=== PATIENT | female | born 1930 | race Caucasian/White ===

== ENCOUNTER → 2017-11-06 | Outpatient (CLI) | payer MEDICARE, OTHER ==
[~2017-11-06] MED LIST: ACET-2043 PO; DIPH0.5D12 IM; GABA-503 PO; HYDR-385 PO; HYDR28CR TP; LATA2.5D7 OP; LORA-629 PO; PHEN100C82 PO; PNEU0.5D3 IM; PRED20TA6 PO; RANI-375 PO; TIMO5DRO3 OP
== END ==
LOC: LAB 13:39
PROVIDERS: ATTEND Surgery
DX: C44.329 Squamous cell carcinoma of skin of other parts of face (principal)
CPT/HCPCS: 88305

== ENCOUNTER → 2017-12-18 | Outpatient (CLI) | payer MEDICARE, OTHER ==
[~2017-12-18] MED LIST changes: +LIDO15CR8 TP
== END ==
LOC: LAB 14:09
PROVIDERS: ATTEND Surgery
DX: L57.8 Other skin changes due to chronic exposure to nonionizing radiation (principal)
CPT/HCPCS: 88305

== ENCOUNTER → 2018-04-09 | Outpatient (CLI) | payer MEDICARE, OTHER | LOC: LAB 13:32 | PROVIDERS: ATTEND Surgery | DX: C44.329 Squamous cell carcinoma of skin of other parts of face (principal) | CPT/HCPCS: 88305; 88344 ==

== ENCOUNTER 2018-07-05 00:13 | Observation (INO) | payer MEDICARE, OTHER ==
[~2018-07-05] VITALS: Ht 152.4 cm; Wt 49.0 kg
[2018-07-05] VITALS (10 sets, daily range): BP systolic 126–152; BP diastolic 64–98
[2018-07-05] MEDS ORDERED: ARTIFICIAL TEARS OINT 3.5 GM ONE (07:59)
[2018-07-05] MEDS ORDERED: ceFAZolin(*) 2GM/D5W 50ML 50 ML IVPB ONE (08:00)
[2018-07-05] MEDS ORDERED: NORMOSOL R SOLN(*) 1000 ML BAG 1,000 ML IV PRN (08:00)
[2018-07-05] MEDS ORDERED: FAMOTIDINE 20 MG TAB PO ONE (08:00)
[2018-07-05] MEDS ORDERED: LIDOCAINE/SOD BICARB 8.4% SYR ID ONE (08:00)
[2018-07-05] MEDS ORDERED: MIDAZOLAM 2 MG/2 ML VIAL IVP PRN (08:00)
[2018-07-05] MEDS ORDERED: DEXAMETHASONE SOD 4 MG/ML VIAL ONE (08:02)
[2018-07-05] MEDS ORDERED: ONDANSETRON 4 MG/2 ML VIAL ONE (08:03)
[2018-07-05] MEDS ORDERED: PROPOFOL EMUL(*) 10MG/ML 20 ML 20 ML ONE (08:03)
[2018-07-05] MEDS ORDERED: LIDOCAINE MPF 1% 5 ML VIAL ONE (08:03)
[2018-07-05] MEDS ORDERED: fentaNYL CITR 100 MCG/2 ML AMP ONE (08:03)
--- NOTE | 2018-07-05 11:41 | Post Operative Progress Note ---
Post Operative Progress Note Date: Jul 05, 2018 Time: 11:34 Surgeon: Agueda Dictation number: [id number] Anesthesia: LMA by Dr. 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
--- NOTE | 2018-07-05 14:54 | OPERATIVE REPORT 1 ---
EVENT DATE: July 05, 2018 SURGEON: Adryan Romeo M.D. ANESTHESIOLOGIST: James Barksdale M.D. ANESTHESIA: LMA. 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 POSTOPERATIVE DIAGNOSIS Recurrent right cheek facial squamous cell skin cancer. PROCEDURE PERFORMED 1, Wide excision of a right face squamous cell skin cancer. 2. Full thickness skin graft from right neck to right face. COMPLICATIONS None. CONDITION Stable. ESTIMATED BLOOD LOSS Minimal. INDICATIONS This is an 87-year-old female who I removed skin cancer from several different places but including one on her right cheek and near the bridge of her nose below the medial portion of her right eye. It has recurred several times so I have recommended wider excision in the operating room with frozen sections to assess the margins. I also told her she would need a skin graft to cover the defect. She is agreeable with this plan. DESCRIPTION OF PROCEDURE The patient was brought to the operating room and placed supine on the operating table. LMA anesthesia was administered and she was placed in a reclining beach chair position. Her right face and neck were prepped and draped in a sterile fashion. A time-out was completed. I marked the skin around the obvious skin cancer and made sure that all the margins were several millimeters away from the palpable cancer. I then anesthetized the skin with 0.5% ropivacaine plain and then made an incision where I had marked the skin and dissected through the dermis and the subcutaneous tissues and then undermined the skin down into the deep subcutaneous tissues to get well around this nodular type of lesion. I then passed the specimen off the field to be sent for permanent. I then removed the superior and inferolateral margins which were closest to the palpable cancer and these were sent separately for frozen section. I made this area was hemostatic with electrocautery but did not cauterize too much so as to not compromise graft take. I then assessed her preauricular, postauricular and neck skin for skin that looked fairly similar to her face and found an area below her earlobe and then marked the skin in the shape of the excision site. I then waited for the frozen section results to come back and they came back as negative for invasive cancer at the margins. I then anesthetized the skin on her right neck with 0.5% ropivacaine plain and then made an incision in the skin where I had marked it and dissected through the dermis and undermined this full thickness graft and removed as little subcutaneous tissue with it as I could. I then flipped it over and used tenotomy scissors and removed any remaining subcutaneous fat from under the dermis and scraped off the dermis until it was all visible and then I pie-crusted the graft with a #15 blade to create little slits to allow fluid to egress. I then placed it onto the defect on her right cheek and placed several interrupted 5-0 Prolene sutures through and through the graft and to the underlying tissues to keep it packed down and then sewed the edges to the edges of the defect with running 5-0 Prolene sutures. It looked nice and fit very nice with no tension and it was adherent to the underlying substrate. I then closed the defect on the right neck with running 4-0 Prolene sutures. I then cleaned and dried her skin and placed polymyxin antibiotic ointment over the graft as well as the incision on her neck and these were covered with Xeroform and dry gauze and then I wrapped her head including her right eye and graft site and donor site with Kerlix and then placed a net tube gauze over her entire head to hold all of the dressings in place. She was then awakened and the LMA removed and she was transported to the recovery room in stable condition, having tolerated the procedure without any apparent problems. ALTHEA
[2018-07-05] MEDS ORDERED: MORPHINE 2 MG/ML SYR IVP PRN (16:00)
[2018-07-05] MEDS ORDERED: ACETAMINOPHEN 325 MG TAB PO PRN (16:00)
[2018-07-05] MEDS ORDERED: FLUSH 10 ML SYR IVP PRN (16:00)
[2018-07-05] MEDS ORDERED: ONDANSETRON 4 MG/2 ML VIAL IVP PRN (16:00)
[2018-07-05] MEDS ORDERED: NALOXONE HCL 0.4 MG/ML VIAL IVP PRN (16:00)
[2018-07-05] MEDS ORDERED: LATANOPRO 0.005% OP SOLN 2.5ML OS SCH (21:00)
[2018-07-05] MEDS ORDERED: TIMOLOL MAL OS SCH (21:00)
[2018-07-05] MEDS: PHENYTOIN ER 100 MG CAPER PO SCH (21:17)
[2018-07-05] MEDS: DOCUSATE SODIUM 100 MG CAP PO SCH (21:17)
[2018-07-05] MEDS: FAMOTIDINE 20 MG TAB PO SCH (21:17)
[2018-07-05] MEDS: GABAPENTIN 300 MG CAP PO SCH (21:18)
[2018-07-06 04:33] VITALS: BP 138/71
[2018-07-06] MEDS ORDERED: DOCU-416 PO (07:12)
--- NOTE | 2018-07-06 07:20 | Short(Outpt) Discharge Summary ---
Discharge Summary Reason for Hosp/Final Diag: (1) Squamous cell carcinoma, face Status: Chronic Hospital Course & Plan: Skin cancer excised from right face below right eye and full-thickness skin graft removed from right neck to the defect below right eye. Pt has done well overnight. D/C to home this morning. Departure Discharge to: Home, Self Care Discharge Instructions Home Meds Active Scripts Docusate Sodium (COLACE) 100 Mg Capsule, 1 CAP PO BID, #30 CAP 0 Refills TAKE WITH A FULL GLASS OF WATER Prov:UTE ALARCON MD 07/06/18 Reported Medications Phenytoin Sodium Extended (DILANTIN) 100 Mg Capsule, 100 MG PO TID, CAPSULE 06/27/18 Timolol (BETIMOL) 5 Ml Drops, 1 GTT OP QHS 04/01/15 Latanoprost (LATANOPROST) 2.5 Ml Drops, 1 GTT OP QHS 04/01/15 Gabapentin (GABAPENTIN) 600 Mg Tablet, 600 MG PO TID 04/01/15 Follow up Referrals: General Surgery - 07/11/18 @ Surgery, General with UTE ALARCON MD You have a follow up appointment scheduled with Dr. Alarcon on 07/11/18, at 4:00 pm. Diet: Regular Activity: As Tolerated Special Instructions: Please keep the dressing on your head and over your right eye and cheek until I see you back in my office. Don't get the dressing wet. I will take the whole dressing down when I see you back in my office. If the dressing accidentally comes off before I see you back, leave it off and apply antibiotic ointment to the graft below your right eye and to the incision on your right neck twice each day. You can also apply dry guaze to your right eye and graft site if it is draining but if it isn't draining then leave it open to air but cover it with the antibiotic ointment. Bacitracin or triple ointment are OK. UTE ALARCON MD Jul 06, 2018 07:20
[2018-07-06 07:33] VITALS: BP 140/88
[2018-07-06] MEDS: FAMOTIDINE 20 MG TAB PO SCH (08:47)
[2018-07-06] MEDS: PHENYTOIN ER 100 MG CAPER PO SCH (08:47)
[2018-07-06] MEDS: DOCUSATE SODIUM 100 MG CAP PO SCH (08:47)
[2018-07-06] MEDS: GABAPENTIN 300 MG CAP PO SCH (08:49)
[2018-07-06 11:21] VITALS: Ht 152.4 cm; Wt 49.0 kg
== END 2018-07-06 07:11 | disposition home or self-care (01) ==
LOC: OR 00:13 → MED 16:50 → INTOOBSV 16:50
PROVIDERS: ADMIT Surgery; ATTEND Surgery
DX: C44.92 Squamous cell carcinoma of skin, unspecified (principal)
CPT/HCPCS: 11642; 15240; 36415; 80185; 88305; A9270; G0378; J1100; J2001; J2405; J2704; J3010; 88331; J0690

== ENCOUNTER 2018-07-07 09:11 | Inpatient (IN) | payer MEDICARE, OTHER ==
[~2018-07-07] VITALS: Ht 177.8 cm; Wt 49.4 kg
--- NOTE | 2018-07-07 09:35 | ER Report ---
History and Physical Time Seen By MD: 09:15 Hx. of Stated Complaint: pt fell at home, shortening and pain in L leg/hip HPI/ROS CHIEF COMPLAINT: fall, left hip pain HISTORY OF PRESENT ILLNESS: 87-year-old female presents approximate one hour after twisting and falling in her kitchen. Patient complains of left hip pain di rectly after the fall. Family helped her to get back in bed and called EMS when patient could not ambulate. Patient's pain was improved with 50 of fentanyl and round. She denies other injuries, pain, weakness, or numbness. Patient is recently status post skin graft to right cheek for malignant melanoma. Patient denies other surgeries. Patient has a seizure history with last seizure at age 38 and is on Dilantin. REVIEW OF SYSTEMS: Constitutional: No fever, no chills. Eyes: No discharge. ENT: No sore throat. Cardiovascular: No chest pain, no palpitations. Respiratory: No cough, no shortness of breath. Gastrointestinal: No abdominal pain, no vomiting. Genitourinary: No hematuria. Musculoskeletal: No back pain. Skin: No rashes. Neurological: No headache. Remainder of the 14 system rev: Yes Allergies: Coded Allergies: No Known Drug Allergies (Unverified , 01/07/17) Home Meds Active Scripts Docusate Sodium (COLACE) 100 Mg Capsule, 1 CAP PO BID, #30 CAP 0 Refills TAKE WITH A FULL GLASS OF WATER Prov:UTE ALARCON MD 07/06/18 Reported Medications Phenytoin Sodium Extended (DILANTIN) 100 Mg Capsule, 100 MG PO TID, CAPSULE 06/27/18 Timolol (BETIMOL) 5 Ml Drops, 1 GTT OP QHS 04/01/15 Latanoprost (LATANOPROST) 2.5 Ml Drops, 1 GTT OP QHS 04/01/15 Gabapentin (GABAPENTIN) 600 Mg Tablet, 600 MG PO TID 04/01/15 Reviewed Nurses Notes: Yes Old Medical Records Reviewed: Yes Hx Smoking: No Smoking Status: Never Smoker Hx Substance Use Disorder: No Hx Alcohol Use: No Constitutional Vital Sign - Last 24 Hours 07/07/18 09:14 Temp 97.9 Pulse 70 Resp 14 B/P (MAP) 107/61 Pulse Ox 97 O2 Delivery Nasal Cannula Physical Exam General Appearance: The patient is alert, has no immediate need for airway protection and no signs of toxicity. Eyes: Pupils equal and round no pallor or injection. ENT, Mouth: Mucous membranes are moist. Pt has 2x3cm skin graft inf to r eye. Respiratory: There are no retractions, lungs are clear to auscultation. Cardiovascular: Regular rate and rhythm. Gastrointestinal: Abdomen is soft and non tender, no masses, bowel sounds normal. Neurologic: alert, oriented, nl sensation throughout Skin: Warm and dry, no rashes. Musculoskeletal: Neck is supple non tender. No c/t/l spine ttp LLE shortened, externally rotated; l hip pain with pain/ttp throughout left hip, knee, tib fib but without stepoffs. DP 1+ bilaterally. able to plantar/dorsiflex toes and ankle. DIFFERENTIAL DIAGNOSIS: After history and physical exam differential diagnosis was considered for hip fx > hip dislocation > pelvic fx Medical Decision Making Data Points Result Diagram: 07/07/1890407/07/18904 Laboratory Hematology Test 07/07/18 09:05 Red Blood Count 3.79 M/uL (4.17-5.56) Mean Corpuscular Volume 101.1 fL (80.0-96.0) Mean Corpuscular Hemoglobin 34.2 pg (26.0-33.0) Mean Corpuscular Hemoglobin Concent 33.8 g/dL (32.0-36.0) Red Cell Distribution Width 13.6 % (11.5-14.5) Mean Platelet Volume 8.7 fL (7.2-11.1) Neutrophils (%) (Auto) 83.0 % (39.4-72.5) Lymphocytes (%) (Auto) 7.5 % (17.6-49.6) Monocytes (%) (Auto) 9.0 % (4.1-12.4) Eosinophils (%) (Auto) 0.2 % (0.4-6.7) Basophils (%) (Auto) 0.3 % (0.3-1.4) Nucleated RBC Relative Count (auto) 0.0 /100WBC Neutrophils # (Auto) 9.3 K/uL (2.0-7.4) Lymphocytes # (Auto) 0.8 K/uL (1.3-3.6) Monocytes # (Auto) 1.0 K/uL (0.3-1.0) Eosinophils # (Auto) 0.0 K/uL (0.0-0.5) Basophils # (Auto) 0.0 K/uL (0.0-0.1) Nucleated RBC Absolute Count (auto) 0.00 K/uL Prothrombin Time 14.4 seconds (12.0-14.4) Prothromb Time International Ratio 1.11 Activated Partial Thromboplast Time 32 seconds (23-35) Sodium Level 130 mmol/L (137-145) Potassium Level 4.1 mmol/L (3.5-5.0) Chloride Level 92 mmol/L (98-107) Carbon Dioxide Level 31 mmol/L (22-31) Blood Urea Nitrogen 14 mg/dl (7-18) Creatinine 0.50 mg/dl (0.52-1.04) Glomerular Filtration Rate Calc > 60.0 Random Glucose 121 mg/dl (75-110) Calcium Level 8.7 mg/dl (8.4-10.2) Total Bilirubin 0.4 mg/dl (0.2-1.3) Aspartate Amino Transf (AST/SGOT) 35 U/L (0-35) Alanine Aminotransferase (ALT/SGPT) 23 U/L (0-56) Alkaline Phosphatase 69 U/L (0-126) Total Protein 6.0 g/dl (6.3-8.2) Albumin 3.6 g/dl (3.5-5.0) Phenytoin (Dilantin) Level 12.8 ug/ml Phenytoin Last Dose Date . Chemistry Test 07/07/18 09:05 White Blood Count 11.2 k/uL (4.5-11.0) Red Blood Count 3.79 M/uL (4.17-5.56) Hemoglobin 12.9 g/dL (12.0-16.0) Hematocrit 38.3 % (34.0-47.0) Mean Corpuscular Volume 101.1 fL (80.0-96.0) Mean Corpuscular Hemoglobin 34.2 pg (26.0-33.0) Mean Corpuscular Hemoglobin Concent 33.8 g/dL (32.0-36.0) Red Cell Distribution Width 13.6 % (11.5-14.5) Platelet Count 156 K/uL (150-450) Mean Platelet Volume 8.7 fL (7.2-11.1) Neutrophils (%) (Auto) 83.0 % (39.4-72.5) Lymphocytes (%) (Auto) 7.5 % (17.6-49.6) Monocytes (%) (Auto) 9.0 % (4.1-12.4) Eosinophils (%) (Auto) 0.2 % (0.4-6.7) Basophils (%) (Auto) 0.3 % (0.3-1.4) Nucleated RBC Relative Count (auto) 0.0 /100WBC Neutrophils # (Auto) 9.3 K/uL (2.0-7.4) Lymphocytes # (Auto) 0.8 K/uL (1.3-3.6) Monocytes # (Auto) 1.0 K/uL (0.3-1.0) Eosinophils # (Auto) 0.0 K/uL (0.0-0.5) Basophils # (Auto) 0.0 K/uL (0.0-0.1) Nucleated RBC Absolute Count (auto) 0.00 K/uL Prothrombin Time 14.4 seconds (12.0-14.4) Prothromb Time International Ratio 1.11 Activated Partial Thromboplast Time 32 seconds (23-35) Glomerular Filtration Rate Calc > 60.0 Calcium Level 8.7 mg/dl (8.4-10.2) Total Bilirubin 0.4 mg/dl (0.2-1.3) Aspartate Amino Transf (AST/SGOT) 35 U/L (0-35) Alanine Aminotransferase (ALT/SGPT) 23 U/L (0-56) Alkaline Phosphatase 69 U/L (0-126) Total Protein 6.0 g/dl (6.3-8.2) Albumin 3.6 g/dl (3.5-5.0) Phenytoin (Dilantin) Level 12.8 ug/ml Phenytoin Last Dose Date . Coagulation Test 07/07/18 09:05 Prothrombin Time 14.4 seconds Prothromb Time International Ratio 1.11 Activated Partial Thromboplast Time 32 seconds Toxicology Test 07/07/18 09:05 Phenytoin (Dilantin) Level 12.8 ug/ml Phenytoin Last Dose Date . EKG/Imaging EKG Interpretation 12 lead EKG: Rhythm: [normal sinus rhythm] [place]: normal QRS: normal ST segments: t wave flattening v5-6, 1; twi avL. No st depression or elevation [ ] Monitor Interpretation: Normal Sinus Rhythm ED Course/Re-evaluation ED Course Patient presents status post fall at home with left lower extremity deformity. Findings consistent with left femoral neck subtrochanteric fracture with distal displacement. Patient remains hemodynamically stable and neurovascularly intact distally. I consulted Dr. Sullivan who will evaluate upon admission and plan operative repair. I consulted Dr. Riley who will admit patient and evaluate for medical clearance. There is no evidence of other significant injury. Decision to Disposition Date: Jul 07, 2018 Decision to Disposition Time: 11:04 Depart Departure Latest Vital Signs Vital Signs Date Time Temp Pulse Resp B/P (MAP) Pulse Ox O2 Delivery O2 Flow Rate FiO2 07/07/18 09:14 97.9 70 14 107/61 97 Nasal Cannula Impression: Primary Impression: Subtrochanteric fracture of femur Condition: Improved Disposition: Admitted from ER Problem Qualifiers Primary Impression: Subtrochanteric fracture of femur Encounter type: initial encounter Fracture type: closed Fracture alignment: displaced Laterality: left Qualified Codes: S72.22XA - Displaced subtrochanteric fracture of left femur, initial encounter for closed fracture TIM YIN MD Jul 07, 2018 09:35
[2018-07-07 09:43] LABS: PLATELET COUNT, AUTOMATED 156 K/uL (150-450)
--- NOTE | 2018-07-07 09:44 | EKG ---
FACILITY: [facility] - [place] PATIENT NAME: LYNN MULLER : [id number] MR: [id number] V: [id number] EXAM DATE: ORDERING PHYSICIAN: TIM YIN TECHNOLOGIST: Test Reason : PRE-OP Blood Pressure : / mmHG Vent. Rate : 069 BPM Atrial Rate : 069 BPM P-R Int : 158 ms QRS Dur : 070 ms QT Int : 412 ms P-R-T Axes : 072 032 082 degrees QTc Int : 441 ms Normal sinus rhythm Nonspecific T wave abnormality Abnormal ECG When compared with ECG of 07-JAN-2017 12:07, premature supraventricular complexes are no longer present Vent. rate has decreased BY 44 BPM Confirmed by UTE JONES ([id number]) on 07/07/2018 2:11:18 PM Referred By: Confirmed By:UTE JONES
[2018-07-07 09:51] LABS: INR 1.11
[2018-07-07] MEDS ORDERED: DIPHTH/TETANUS/ACEL. PERTUSSIS IM ONLY ONE (10:20)
--- NOTE | 2018-07-07 10:32 | RADIOLOGY IMAGING REPORT ---
FACILITY: [facility] - [place] PATIENT NAME: Evelyne Flores : 1930 MR: [id number] V: [id number] EXAM DATE: ORDERING PHYSICIAN: TIM YIN TECHNOLOGIST: Location: [facility] - [place] Patient: Evelyne Flores : 1930 Visit/Account:[id number] Date of Sevice: 07/07/2018 FEMUR LEFT COMPARISONS: None. ADDITIONAL PERTINENT HISTORY: Fall with left hip pain. FINDINGS: Osseous structures: Intertrochanteric fracture with severe varus deformity. Medial displacement of th e distal fracture fragment in relation to the proximal fracture fragment. Joint spaces: Negative. Surrounding soft tissues: Negative. IMPRESSION: 1. Intertrochanteric fracture of the left hip with severe varus deformity and medial displacement of the distal fracture fragment. Report Dictated By: Anthony Patricia MD at 07/07/2018 10:27 AM Report E-Signed By: Anthony Patricia MD at 07/07/2018 10:28 AM WSN:[id number]
--- NOTE | 2018-07-07 10:33 | RADIOLOGY IMAGING REPORT ---
[place] [facility] [place]: Evelyne Flores : 1930 MR: [id number] V: [id number] EXAM DATE: ORDERING PHYSICIAN: TIM YIN TECHNOLOGIST: Location: [facility] Patient: Evelyne Flores : 1930 Visit/Account:[id number] Date of Sevice: 07/07/2018 KNEE 3 VIEW LEFT COMPARISONS: None. ADDITIONAL PERTINENT HISTORY: Fall with left hip pain. FINDINGS: Osseous structures: Negative. Joint spaces: Negative. Surrounding soft tissues: Negative. IMPRESSION: Normal views of the left knee. Report Dictated By: Anthony Patricia MD at 07/07/2018 10:29 AM Report E-Signed By: Anthony Patricia MD at 07/07/2018 10:29 AM WSN:[id number]
--- NOTE | 2018-07-07 10:34 | RADIOLOGY IMAGING REPORT ---
FACILITY: [facility] - [place] PATIENT NAME: Evelyne Flores : 1930 MR: [id number] V: [id number] EXAM DATE: ORDERING PHYSICIAN: TIM YIN TECHNOLOGIST: Location: [facility] Patient: Evelyne Flores : 1930 Visit/Account:[id number] Date of Sevice: 07/07/2018 TIBIA FIBULA LEFT COMPARISONS: None. ADDITIONAL PERTINENT HISTORY: Left hip pain after fall FINDINGS: Osseous structures: Negative. Joint spaces: Negative. Surrounding soft tissues: Negative. IMPRESSION: Normal views of the left tibia and fibula Report Dictated By: Anthony Patricia MD at 07/07/2018 10:29 AM Report E-Signed By: Anthony Patricia MD at 07/07/2018 10:30 AM WSN:[id number]
--- NOTE | 2018-07-07 10:40 | RADIOLOGY IMAGING REPORT ---
FACILITY: [facility] PATIENT NAME: Evelyne Flores : 1930 MR: [id number] V: [id number] EXAM DATE: ORDERING PHYSICIAN: TIM YIN TECHNOLOGIST: Location: [facility] - [place] Patient: Evelyne Flores : 1930 Visit/Account:[id number] Date of Sevice: 07/07/2018 HIP LEFT History: Left hip deformity and fracture. Comparison study: None. Findings: There is diffuse osteopenia. There is a subtrochanteric left femoral neck fracture with very significant displacement of the dista l fracture fragment. There is a resultant varus deformity. The lesser trochanter bone fragment is avu lsed. No additional fractures are seen. IMPRESSION: 1. Diffuse osteopenia. 2. Markedly angulated subtrochanteric left femoral neck fracture with comminution and avulsion of the lesser trochanter fragment. Report Dictated By: Wilson Purdy MD at 07/07/2018 10:34 AM Report E-Signed By: Wilson Purdy MD at 07/07/2018 10:35 AM WSN:[id number]
[2018-07-07] MEDS ORDERED: fentaNYL CITR 100 MCG/2 ML AMP IVP ONE (11:05)
[2018-07-07] MEDS ORDERED: PROMETHAZINE 25 MG/ML 1 ML AMP IVP PRN (12:00)
[2018-07-07] MEDS ORDERED: MORPHINE 1 MG/ML 30 ML PCA IV PRN (12:00)
[2018-07-07] MEDS ORDERED: NALOXONE HCL 0.4 MG/ML VIAL IVP PRN (12:00)
[2018-07-07 12:15] VITALS: BP 127/71
[2018-07-07] MEDS: NS(*) 0.9% 1000 ML BAG 1,000 ML IV PRN (13:47)
[2018-07-07] MEDS: GABAPENTIN 300 MG CAP PO SCH ×2 (14:10→20:53)
[2018-07-07] MEDS: PHENYTOIN ER 100 MG CAPER PO SCH ×2 (14:10→20:53)
--- NOTE | 2018-07-07 14:10 | History & Physical ---
History of Present Illness Chief Complaint Hip pain History of Present Illness This patient presented to the emergency room complaining of left hip pain. She fell earlier today and experienced the sudden onset of pain in her left hip. She was unable to stand afterward and was brought to the emergency room by EMT's. History Problems: (1) Seizure Onset Date: 04/01/2015 Status: Acute (2) Squamous cell carcinoma, face Status: Chronic Home Meds Active Scripts Docusate Sodium (COLACE) 100 Mg Capsule, 1 CAP PO BID, #30 CAP 0 Refills TAKE WITH A FULL GLASS OF WATER Prov:UTE ALARCON MD 07/06/18 Reported Medications Phenytoin Sodium Extended (DILANTIN) 100 Mg Capsule, 100 MG PO TID, CAPSULE 06/27/18 Timolol (BETIMOL) 5 Ml Drops, 1 GTT OP QHS 04/01/15 Latanoprost (LATANOPROST) 2.5 Ml Drops, 1 GTT OP QHS 04/01/15 Gabapentin (GABAPENTIN) 600 Mg Tablet, 600 MG PO TID 04/01/15 Allergies: Coded Allergies: No Known Drug Allergies (Unverified , 01/07/17) Hx Smoking: No Smoking Status: Never Smoker Caffeine Intake: Coffee Caffeine/Cups Per Day: 3 CUPS OF COFFEE "THE ONLY THING THAT KEEPS ME ALIVE" Hx Alcohol Use: No Hx Substance Use Disorder: No Social Drug Use: Never Review of Systems All Systems Reviewed/Normal: Yes, Except as Noted Musculoskeletal: Pain Exam Vital Signs Vital Signs Date Time Temp Pulse Resp B/P (MAP) Pulse Ox O2 Delivery O2 Flow Rate FiO2 07/07/18 13:48 14 95 07/07/18 12:35 ??? 07/07/18 12:30 ???/??? (1665) 07/07/18 12:15 Nasal Cannula 2.0 07/07/18 09:14 97.9 Neuro: No Gross deficits Eyes: PERRLA Cardiovascular: Regular Rate and Rhythm Respiratory: Clear to Auscultation GI: Abd Soft and Non-Tender Extremities: No Edema Integumentary: No Cyanosis; Other (Right suborbital skin graft.) Medical Decision Making Data Points Result Diagram: 07/07/1890407/07/18904 Assessment and Plan Problems: (1) Subtrochanteric fracture of femur Status: Acute Assessment & Plan: She did present with a left hip fracture. She is scheduled for operative repair with Dr. Sullivan tomorrow. She has no underlying conditions that would prevent her from having surgery. She will require postoperative anti coagulation. (2) Seizure Onset Date: 04/01/2015 Status: Acute Assessment & Plan: She is on chronic treatment with Phenytoin and gabapentin. (3) Skin lesion of face Status: Chronic Assessment & Plan: She did have a facial skin graft done on 07/[address] Alarcon. He is aware and will evaluate her on Monday. Venous Thromboembolism Antithrombotics Is Pt On Any Antithrombotics?: No Exam Sepsis Risk: No Definite Risk Problem Qualifiers (1) Subtrochanteric fracture of femur: Encounter type: initial encounter Fracture type: closed Fracture alignment: displaced Laterality: left Qualified Codes: S72.22XA - Displaced subtrochanteric fracture of left femur, initial encounter for closed fracture UTE JONES DO Jul 07, 2018 14:10
[2018-07-07 15:37] VITALS: Ht 177.8 cm; Wt 49.4 kg
[2018-07-07 15:56] VITALS: BP 107/54
--- NOTE | 2018-07-07 17:09 | RADIOLOGY IMAGING REPORT ---
FACILITY: [facility] - [place], [place] PATIENT NAME: Evelyne Flores : 1930 MR: [id number] V: [id number] EXAM DATE: ORDERING PHYSICIAN: UTE JONES TECHNOLOGIST: Location: [facility] Patient: Evelyne Flores : 1930 Visit/Account:[id number] Date of Sevice: 07/07/2018 CHEST SINGLE AP HISTORY: Hip fracture. Preoperative study. COMPARISON: Chest x-ray January 07, 2017. FINDINGS: Cardiomediastinal contours: The heart is enlarged. There is prominence of the central pulmonary vesse ls. Lungs and pleura: There is no discrete infiltrate, but there is a new small left pleural effusion. Th ere appears to be left basilar atelectasis as well. Bones/soft tissues: Diffuse osteopenia. IMPRESSION: 1. New left pleural effusion with left basilar atelectasis. 2. Diffuse osteopenia. Report Dictated By: Wilson Purdy MD at 07/07/2018 5:04 PM Report E-Signed By: Wilson Purdy MD at 07/07/2018 5:05 PM WSN:[id number]
[2018-07-07 19:48] VITALS: BP 94/46
[2018-07-07] MEDS: PATIENT'S OWN MED OS SCH (20:53)
[2018-07-07] MEDS: DOCUSATE SODIUM 100 MG CAP PO SCH (20:53)
[2018-07-07] MEDS: LATANOPRO 0.005% OP SOLN 2.5ML OU SCH (20:54)
[2018-07-08] VITALS (17 sets, daily range): BP systolic 98–137; BP diastolic 52–96
[2018-07-08 06:22] LABS: PLATELET COUNT, AUTOMATED 119 K/uL (150-450)
[2018-07-08] MEDS: NS(*) 0.9% 1000 ML BAG 1,000 ML IV PRN (06:38)
[2018-07-08] MEDS ORDERED: FAMOTIDINE 20 MG TAB PO ONE (07:00)
[2018-07-08] MEDS ORDERED: NORMOSOL R SOLN(*) 1000 ML BAG 1,000 ML IV ONE (07:00)
[2018-07-08] MEDS ORDERED: ONDANSETRON 4 MG/2 ML VIAL ONE ×2 (07:24→12:28)
[2018-07-08] MEDS ORDERED: DEXAMETHASONE SOD PHOS 10MG/ML ONE ×2 (07:24→12:28)
[2018-07-08] MEDS ORDERED: PROPOFOL EMUL(*) 10MG/ML 20 ML 0 ML ONE (07:24)
[2018-07-08] MEDS ORDERED: ROCURONIUM BROM 10 MG/ML 10 ML ONE ×2 (07:24→12:28)
[2018-07-08] MEDS ORDERED: LIDOCAINE MPF 1% 5 ML VIAL ONE ×2 (07:24→12:28)
[2018-07-08] MEDS ORDERED: PHENYLEPHRINE 10 MG/1 ML VIAL ONE (07:24)
[2018-07-08] MEDS ORDERED: KETAMINE HCL 500 MG/10 ML VIAL ONE ×2 (07:26→09:19)
[2018-07-08] MEDS ORDERED: fentaNYL CITR 100 MCG/2 ML AMP ONE ×2 (07:29→12:30)
[2018-07-08] MEDS ORDERED: MIDAZOLAM 2 MG/2 ML VIAL ONE ×2 (07:29→12:30)
[2018-07-08] MEDS ORDERED: LIDOCAINE 2% JELLY 5 ML TUBE ONE (07:31)
[2018-07-08] MEDS ORDERED: NS(*) 0.9% 100 ML BAG 0 ML ONE (07:34)
[2018-07-08] MEDS ORDERED: BUPIV/EPI 0.25% 1:200,000 50ML INFIL ONE (07:35)
[2018-07-08] MEDS ORDERED: PHENYTOIN 100 MG/2 ML IVP ONE (08:20)
--- NOTE | 2018-07-08 09:37 | Hospitalist Progress Note ---
Subjective Progress Notes Subjective The patient is resting comfortably on a CHANNELER INSOLE with morphine. Physical Exam Vital Signs Date Time Temp Pulse Resp B/P (MAP) Pulse Ox O2 Delivery O2 Flow Rate FiO2 07/08/18 07:21 98.6 72 12 110/52 (71) 98 Nasal Cannula 1.5 Intake and Output 07/08/18 07:00 Intake Total 1598 ml Output Total 675 ml Balance 923 ml Intake Oral 620 ml IV Total 978 ml Output Urine Total 675 ml General Appearance: Other (Sleeping.) Cardiovascular: Regular Rate and Rhythm Respiratory: Clear to Auscultation GI: Soft and Non-Tender Extremities: Warm, Perfused Psych: Other (Sleeping.) Result Diagram: 07/08/18 0507/08/18532 Monitor Interpretation: Normal Sinus Rhythm Assessment and Plan Problems: (1) Subtrochanteric fracture of femur Status: Acute Assessment & Plan: She did present with a left hip fracture. She is scheduled for operative repair with Dr. Sullivan later today. She has no underlying conditions that would prevent her from having surgery. She will require postoperative anticoagulation. (2) Seizure Onset Date: 04/01/2015 Status: Acute Assessment & Plan: She is on chronic treatment with Phenytoin and gabapentin. Will give her phenytoin IV this am prior to surgery and resume orals after the procedure. (3) Skin lesion of face Status: Chronic Assessment & Plan: She did have a facial skin graft done on 07/[address] Romeo. He is aware and will evaluate her on Monday. Time Spent on Plan of Care: < 30 min Exam Sepsis Risk: No Definite Risk Problem Qualifiers (1) Subtrochanteric fracture of femur: Encounter type: initial encounter Fracture type: closed Fracture alignment: displaced Laterality: left Qualified Codes: S72.22XA - Displaced subtrochanteric fracture of left femur, initial encounter for closed fracture OVIDIO TERRY MD Jul 08, 2018 09:37
[2018-07-08] MEDS: PHENYTOIN ER 100 MG CAPER PO SCH ×3 (09:38→21:05)
[2018-07-08] MEDS: DOCUSATE SODIUM 100 MG CAP PO SCH ×2 (09:38→21:05)
[2018-07-08] MEDS: GABAPENTIN 300 MG CAP PO SCH ×3 (09:38→21:05)
[2018-07-08] MEDS ORDERED: BUPIVACAIN 0.25% INJ 50ML VIAL ONE (10:20)
[2018-07-08] MEDS ORDERED: PROPOFOL EMUL(*) 10MG/ML 20 ML 20 ML ONE (12:28)
[2018-07-08] MEDS ORDERED: ceFAZolin(*) 2GM/D5W 50ML 50 ML IVPB ONE (13:00)
[2018-07-08] MEDS ORDERED: ACETAMINOPHEN(*)1000 MG/100 ML 100 ML IVPB ONE (15:39)
--- NOTE | 2018-07-08 15:56 | RADIOLOGY IMAGING REPORT ---
FACILITY: [facility] [place] PATIENT NAME: Evelyne Flores : 1930 MR: [id number] V: [id number] EXAM DATE: ORDERING PHYSICIAN: JORDAN RIOJAS TECHNOLOGIST: Location: Patient: Evelyne Flores : 1930 Visit/Account:[id number] Date of Sevice: 07/08/2018 C-ARM FLUORO 1 HR INDICATION: Internal fixation of left proximal femoral fracture. COMPARISON: X-ray done earlier in the day. FINDINGS: Fluoroscopic images show internal fixation of proximal femoral fracture previously seen. Intramedullary patricia and dynamic screw are in place and appear to be in good location. No periprostheti c abnormality. No acute fracture. No dislocation or bony lesion. No other radiopaque foreign body the distal femoral intramedullary patricia is visualized and shows no focal abnormality. Fluoroscopic images: 4. Fluoroscopic time: 223.8 seconds. The DAP: 0.72243 mGym2. IMPRESSION: Internal fixation of previous proximal left femoral fracture with good alignment. Report Dictated By: Camilo Osborn at 07/08/2018 3:49 PM Report E-Signed By: Camilo Osborn at 07/08/2018 3:52 PM WSN:[id number]
[2018-07-08 15:59] LABS: PLATELET COUNT, AUTOMATED 113 K/uL (150-450)
[2018-07-08] MEDS: LATANOPRO 0.005% OP SOLN 2.5ML OU SCH (21:06)
[2018-07-08] MEDS: PATIENT'S OWN MED OS SCH (21:06)
[2018-07-09] VITALS (11 sets, daily range): BP systolic 101–136; BP diastolic 46–84
[2018-07-09] MEDS: NS(*) 0.9% 1000 ML BAG 1,000 ML IV PRN (03:17)
[2018-07-09 05:39] LABS: PLATELET COUNT, AUTOMATED 96 K/uL (150-450)
[2018-07-09] MEDS ORDERED: NS(*) 0.9% 500 ML BAG 500 ML IV PRN ×2 (08:45→12:55)
[2018-07-09] MEDS ORDERED: BACITRACIN TP SCH (09:00)
[2018-07-09] MEDS ORDERED: POLYMYXIN B TP SCH (09:00)
--- NOTE | 2018-07-09 09:14 | General Surgery Consultation ---
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 She remained in house overnight and was discharged home the next morning after she was doing well. She went home and the next day after discharge apparently had fallen and was brought in by EMS and found to have a left femur fracture for which she underwent ORIF 2 days ago. She has no complaints with respect to her face or neck today. History Home Meds Active Scripts Docusate Sodium (COLACE) 100 Mg Capsule, 1 CAP PO BID, #30 CAP 0 Refills TAKE WITH A FULL GLASS OF WATER Prov:UTE ALARCON MD 07/06/18 Reported Medications Phenytoin Sodium Extended (DILANTIN) 100 Mg Capsule, 100 MG PO TID, CAPSULE 06/27/18 Timolol (BETIMOL) 5 Ml Drops, 1 GTT OP QHS 04/01/15 Latanoprost (LATANOPROST) 2.5 Ml Drops, 1 GTT OP QHS 04/01/15 Gabapentin (GABAPENTIN) 600 Mg Tablet, 600 MG PO TID 04/01/15 Allergies: Coded Allergies: No Known Drug Allergies (Unverified , 01/07/17) Exam Vital Signs Vital Signs Date Time Temp Pulse Resp B/P (MAP) Pulse Ox O2 Delivery O2 Flow Rate FiO2 07/09/18 07:57 20 92 07/09/18 07:57 99.2 93 113/54 (73) Nasal Cannula 1.0 General Appearance: Alert, Awake, No Acute Distress, Afebrile Integumentary: Other (the donor site on her right neck is healing well without erythema or drainage. The skin graft on the right side of the bridge of her nose and right cheek appears to be healing well. It is scabbed over but there is no erythema and it appears dry. The graft appears healthy.) Medical Decision Making Data Points Result Diagram: 07/09/1823 07/09/18522 Assessment and Plan Problems: (1) Squamous cell carcinoma, face Status: Chronic Assessment & Plan: 07/09/18: The patient appears to be starting the healing process well for her right face and neck. The graft appears to be healing well. Pathology results revealed the lateral margins are negative. The deep margin appears to be involved but I physically could not get any further deeper tissue as I was down to the facial musculature and even remove some of the musculature with the specimen. She will eventually need to see oncology to discuss further treatment of this aggressive recurring squamous cell skin cancer. We'll keep the skin graft open to air but apply antibiotic ointment twice a day. I will continue to follow along with respect to her head and neck surgical sites. (2) Subtrochanteric fracture of femur Status: Acute Assessment & Plan: Status post ORIF by orthopedic surgery. Management per orthopedic surgery and the hospitalist service. Condition Stable Time Spent: < 30 min Venous Thromboembolism Antithrombotics Is Pt On Any Antithrombotics?: No Problem Qualifiers (1) Subtrochanteric fracture of femur: Encounter type: initial encounter Fracture type: closed Fracture alignment: displaced Laterality: left Qualified Codes: S72.22XA - Displaced subtrochanteric fracture of left femur, initial encounter for closed fracture UTE ALARCON MD Jul 09, 2018 09:14
[2018-07-09] MEDS ORDERED: DIAZEPAM 5 MG TAB PO PRN (09:20)
[2018-07-09] MEDS: APAP/HYDROCODONE 325/5 TAB PO PRN ×3 (09:37→23:09)
--- NOTE | 2018-07-09 10:33 | Hospitalist Progress Note ---
Subjective Progress Notes Subjective She has no complaints this morning. She had no acute events overnight. Patient Complains of: Cardiovascular: No: Chest Pain Respiratory: No: Shortness of Breath Physical Exam Vital Signs Date Time Temp Pulse Resp B/P (MAP) Pulse Ox O2 Delivery O2 Flow Rate FiO2 07/09/18 07:57 20 92 07/09/18 07:57 99.2 93 113/54 (73) Nasal Cannula 1.0 Intake and Output 07/09/18 01:00 Intake Total 3058 ml Output Total 695 ml Balance 2363 ml Intake Oral 480 ml IV Total 2578 ml Output Urine Total 545 ml Estimated Blood Loss 150 ml General Appearance: Alert, Awake, No Acute Distress, Afebrile Neuro: No Gross deficits Cardiovascular: Regular Rate and Rhythm Respiratory: No Respiratory Distress, Clear to Auscultation Extremities: Warm, Perfused; No Edema Psych: Alert & Oriented X3, Appropriate Mood & Affect Result Diagram: 07/09/18 0523 07/09/18522 Monitor Interpretation: Normal Sinus Rhythm Assessment and Plan Problems: (1) Subtrochanteric fracture of femur Status: Acute Assessment & Plan: She did present with a left hip fracture. She had operative repair with Dr. Sullivan on 07/08. She will require postoperative anticoagulation. Her hemoglobin was 7.3 this morning. She will be transfused two units today. Recheck CBC in the morning. (2) Seizure Onset Date: 04/01/2015 Status: Acute Assessment & Plan: She is on chronic treatment with Phenytoin and gabapentin. She was given her phenytoin IV prior to surgery and she resumed orals after the procedure. (3) Skin lesion of face Status: Chronic Assessment & Plan: She did have a facial skin graft done on 07/[address] Romeo. He is aware and will evaluate her on Monday. Exam Sepsis Risk: No Definite Risk Problem Qualifiers (1) Subtrochanteric fracture of femur: Encounter type: initial encounter Fracture type: closed Fracture alignment: displaced Laterality: left Qualified Codes: S72.22XA - Displaced subtrochanteric fracture of left femur, initial encounter for closed fracture CATRACHO REDD QUAL RESEARCH MANAGER Jul 09, 2018 10:33
[2018-07-09] MEDS ORDERED: BISACODYL 10 MG SUPP PR PRN (10:50)
[2018-07-09] MEDS: PHENYTOIN ER 100 MG CAPER PO SCH ×3 (11:08→20:55)
[2018-07-09] MEDS: POLYETHYLENE GLYCOL 17 GM PKT PO SCH (11:08)
[2018-07-09] MEDS: GABAPENTIN 300 MG CAP PO SCH ×3 (11:08→20:55)
[2018-07-09] MEDS: DOCUSATE SODIUM 100 MG CAP PO SCH ×2 (11:08→20:55)
[2018-07-09] MEDS: BACITRACIN/POLYMY B OINT 15 GM TP SCH ×2 (11:20→20:56)
[2018-07-09] MEDS: MAGNESIUM HYDROXIDE* 30ML UDCP PO PRN (13:33)
[2018-07-09] MEDS: PATIENT'S OWN MED OS SCH (20:56)
[2018-07-09] MEDS: LATANOPRO 0.005% OP SOLN 2.5ML OU SCH (20:57)
[2018-07-10 04:30] VITALS: BP 125/60
[2018-07-10 05:54] LABS: PLATELET COUNT, AUTOMATED 97 K/uL (150-450)
[2018-07-10] MEDS: NS(*) 0.9% 1000 ML BAG 1,000 ML IV PRN (06:38)
[2018-07-10 07:16] VITALS: BP 131/64
--- NOTE | 2018-07-10 08:52 | Hospitalist Depart ---
Discharge Summary Reason for Hosp/Final Diag: (1) Subtrochanteric fracture of femur Status: Acute Hospital Course & Plan: She did present with a left hip fracture. She had operative repair with Dr. Sullivan on 07/08. She will be placed on Lovenox for DVT prophylaxis. Her hemoglobin dropped to 7.3 post-operatively. She was transfused two units 07/09. Her hemoglobin is stable post transfusion. She will be transferred to [facility] ECF unit for further rehab. (2) Seizure Onset Date: 04/01/2015 Status: Acute Hospital Course & Plan: She is on chronic treatment with Phenytoin and gabapentin. She was given her phenytoin IV prior to surgery and she resumed orals after the procedure. (3) Skin lesion of face Status: Chronic Hospital Course & Plan: She did have a facial skin graft done on 07/[address] Alarcon. Departure Latest Vital Signs Vital Signs 07/10/18 07:16 Temp 98.9 Pulse 91 Resp 20 B/P (MAP) 131/64 (86) Pulse Ox 94 O2 Delivery Nasal Cannula O2 Flow Rate 2.5 Weight (Pounds): 109 Result Diagram: 07/10/1852807/10/18528 Condition: Improved Discharge: [facility] ECF Discharge Instructions Home Meds Active Scripts Docusate Sodium (COLACE) 100 Mg Capsule, 1 CAP PO BID, #30 CAP 0 Refills TAKE WITH A FULL GLASS OF WATER Prov:UTE ALARCON MD 07/06/18 Reported Medications Phenytoin Sodium Extended (DILANTIN) 100 Mg Capsule, 100 MG PO TID, CAPSULE 06/27/18 Timolol (BETIMOL) 5 Ml Drops, 1 GTT OP QHS 04/01/15 Latanoprost (LATANOPROST) 2.5 Ml Drops, 1 GTT OP QHS 04/01/15 Gabapentin (GABAPENTIN) 600 Mg Tablet, 600 MG PO TID 04/01/15 Diet: Regular Activity: As Tolerated, With Walker Venous Thromboembolism Antithrombotics Is Pt On Any Antithrombotics?: No Problem Qualifiers (1) Subtrochanteric fracture of femur: Encounter type: initial encounter Fracture type: closed Fracture alignment: displaced Laterality: left Qualified Codes: S72.22XA - Displaced subt rochanteric fracture of left femur, initial encounter for closed fracture CATRACHO REDD ARMATURE BANDER Jul 10, 2018 08:52
[2018-07-10] MEDS ORDERED: ENOXAPARIN 40 MG/0.4ML SYR SC SCH (09:00)
[2018-07-10] MEDS ORDERED: INFLUENZA VIRUS VAC 0.5ML SYR IM ONLY ONE (09:00)
[2018-07-10] MEDS: GABAPENTIN 300 MG CAP PO SCH (09:11)
[2018-07-10] MEDS: PHENYTOIN ER 100 MG CAPER PO SCH (09:11)
[2018-07-10] MEDS: MAGNESIUM HYDROXIDE* 30ML UDCP PO PRN (09:11)
[2018-07-10] MEDS: DOCUSATE SODIUM 100 MG CAP PO SCH (09:11)
[2018-07-10] MEDS: POLYETHYLENE GLYCOL 17 GM PKT PO SCH (09:11)
[2018-07-10] MEDS: BACITRACIN/POLYMY B OINT 15 GM TP SCH (09:11)
[2018-07-10] MEDS: APAP/HYDROCODONE 325/5 TAB PO PRN (09:52)
--- NOTE | 2018-07-16 14:12 | OPERATIVE REPORT 1 ---
EVENT DATE: July 08, 2018 SURGEON: Migel Sullivan MD ANESTHESIOLOGIST: Shin Diaz MD ANESTHESIA: General endotracheal anesthesia. LABORER LIVESTOCK: CHIP Carter PREOPERATIVE DIAGNOSIS Left intertrochanteric hip fracture. POSTOPERATIVE DIAGNOSIS Left intertrochanteric hip fracture. PROCEDURE PERFORMED Long Gamma nailing after reduction of left intertrochanteric femur fracture. IV FLUIDS 900 cc. ESTIMATED BLOOD LOSS 150 cc. IMPLANTS Long Gamma nail from Jimmy with a sliding hip screw and two distal locking screws, all from Jimmy. SPECIMENS None. COMPLICATIONS None. DISPOSITION Post-Anesthesia Care Unit INDICATIONS FOR SURGERY Ms. Flores is an 87-year-old female who sustained a ground-level fall while at home, resulting in severe left hip pain. She was brought to the Emergency Department at [facility] [place] where she was found to have an intertrochanteric hip fracture on the left. She was worked up after admission by Internal Medicine and cleared for surgery. Her physical examination was significant for shortening and external rotation of the left lower extremity as well as pain with any motion of the left hip. Her x-rays showed a comminuted intertrochanteric fracture with both involvement of both the greater and lesser trochanter. Ms. Flores was counseled with regard to risks, benefit and alternatives to surgery and elected to undergo operative fixation of the left hip fracture. DESCRIPTION OF PROCEDURE On the day of surgery, she was met in the preoperative hold area and all questions were answered. Her operative site was identified and marked by me. She was brought in good condition to the operating room, where she was first intubated and sedated and then a fascia iliaca block was placed. A final time- out was undertaken to confirm correct patient, correct levels and correct surgery. Her operative site was prepped and draped in the standard sterile orthopedic fashion. The traction table was used to reduce the fracture and an excellent reduction was obtained. A standard lateral incision was made just lateral and superior to the greater trochanter of the left hip. A guidewire was then placed on the tip of the greater trochanter just medial and driven down into the shaft of the femur. The opening drill was then placed over the guidewire and sunk down to the appropriate level. A ball-tip guide patricia was then placed through the hole in the greater trochanter and down the shaft of the femur to just above the knee joint. Sequential reaming was then performed without difficulty. The 380 mm Gamma nail was then placed and impacted to the appropriate depth. The proximal guide was then used and a separate incision was made for placement of the screw into the femoral neck and head. The screw was then placed after appropriate drilling was performed using the triple guide and we then used the set screw to lock the cephalomedullary device in place. Fluoroscopy was then taken distally in perfect circles. Technique was used to place two distal locking screws, one in the static hole and one in the proximal aspect of the dynamic hole. AP and lateral radiographs were obtained of the hip as well as distally to ensure appropriate placement of all hardware. The wounds were then irrigated with copious sterile saline solution and closed with inverted interrupted sutures for the deep fascia and herminio for the skin. Sterile dressings were applied and the patient was taken to the recovery room in good condition. POSTOPERATIVE CARE PLAN Ms. Flores will be weightbearing as tolerated. She will likely require some time in a senior living facility and she will follow up with me two weeks postoperatively for an examination and removal of herminio. ALTHEA
== END 2018-07-10 10:05 | DRG 481 ==
LOC: ER 10:05 → MED 11:11
PROVIDERS: ADMIT Family Medicine; ATTEND Family Medicine
PROC: 0QS736Z Reposition Left Upper Femur with Intramedullary Internal Fixation Device, Percutaneous Approach (ICD-10-PCS; principal; 2018-07-07)
PROC: 30233N1 Transfusion of Nonautologous Red Blood Cells into Peripheral Vein, Percutaneous Approach (ICD-10-PCS; 2018-07-09)
DX: S72.22XA Displaced subtrochanteric fracture of left femur, initial encounter for closed fracture (principal); D62 Acute posthemorrhagic anemia; G40.909 Epilepsy, unspecified, not intractable, without status epilepticus; M81.0 Age-related osteoporosis without current pathological fracture; C44.92 Squamous cell carcinoma of skin, unspecified; W18.30XA Fall on same level, unspecified, initial encounter; Y92.000 Kitchen of unspecified non-institutional (private) residence as the place of occurrence of the external cause; Y99.8 Other external cause status; Z23 Encounter for immunization
CPT/HCPCS: 36415; 36430; 71045; 76000; 76942; 80185; 82040; 82247; 82310; 82374; 82435; 82565; 82947; 84075; 84132; 84155; 84295; 84450; 84460; 84520; 85025; 85610; 85730; 86850; 86900; 86901; 86920; 88305; 88331; 90471; 90715; 93005; 96374; 97161; 97162; 97166; 99285; C1713; C1758; G0378; J0131; J0690; J1100; J1165; J1650; J2001; J2250; J2270; J2370; J2405; J2704; J3010; J3490; J7030; J7040; J7050; P9016

== ENCOUNTER → 2018-07-07 | Outpatient (CLI) | payer MEDICARE, OTHER ==
[~2018-07-07] MED LIST changes: +DOCU-416 PO
[2018-07-07 15:37] VITALS: BMI 15.6
== END ==
LOC: AMB 08:49
PROVIDERS: ATTEND Nurse Practitioner
DX: M25.551 Pain in right hip (principal); M21.951 Unspecified acquired deformity of right thigh; M79.89 Other specified soft tissue disorders; W01.0XXA Fall on same level from slipping, tripping and stumbling without subsequent striking against object, initial encounter
CPT/HCPCS: A0425; A0427

== ENCOUNTER 2018-07-10 10:07 | Inpatient (IN) | payer MEDICARE, OTHER ==
[2018-07-07 15:37] VITALS: Ht 152.4 cm; Wt 59.0 kg
[~2018-07-10] VITALS: Ht 152.4 cm; Wt 59.0 kg
[2018-07-10 10:40] VITALS: BP 115/63
[2018-07-10] MEDS ORDERED: PNEUMOCOC VAC POLY 25MCG/0.5ML IM ONLY ONE (10:45)
[2018-07-10] MEDS ORDERED: INFLUENZA VIRUS VAC 0.5ML SYR IM ONLY ONE (10:45)
[2018-07-10] MEDS ORDERED: BISACODYL 10 MG SUPP PR PRN (10:55)
[2018-07-10] MEDS ORDERED: DIAZEPAM 5 MG TAB PO PRN (10:55)
[2018-07-10] MEDS ORDERED: MAGNESIUM HYDROXIDE* 30ML UDCP PO PRN (10:55)
--- NOTE | 2018-07-10 11:00 | ECF H&P BLANK ---
[facility] H&P UPDATE History of Present Illness Chief Complaint Hip pain History of Present Illness This patient presented to the emergency room complaining of left hip pain. She fell earlier today and experienced the sudden onset of pain in her left hip. She was unable to stand afterward and was brought to the emergency room by EMT's. History Problems: (1) Seizure Onset Date: 04/01/2015 Status: Acute (2) Squamous cell carcinoma, face Status: Chronic Home Meds Active Scripts Docusate Sodium (COLACE) 100 Mg Capsule, 1 CAP PO BID, #30 CAP 0 Refills TAKE WITH A FULL GLASS OF WATER Prov:UTE ALARCON MD 07/06/18 Reported Medications Phenytoin Sodium Extended (DILANTIN) 100 Mg Capsule, 100 MG PO TID, CAPSULE 06/27/18 Timolol (BETIMOL) 5 Ml Drops, 1 GTT OP QHS 04/01/15 Latanoprost (LATANOPROST) 2.5 Ml Drops, 1 GTT OP QHS 04/01/15 Gabapentin (GABAPENTIN) 600 Mg Tablet, 600 MG PO TID 04/01/15 Allergies: Coded Allergies: No Known Drug Allergies (Unverified , 01/07/17) Hx Smoking: No Smoking Status: Never Smoker Caffeine Intake: Coffee Caffeine/Cups Per Day: 3 CUPS OF COFFEE "THE ONLY THING THAT KEEPS ME ALIVE" Hx Alcohol Use: No Hx Substance Use Disorder: No Social Drug Use: Never Review of Systems All Systems Reviewed/Normal: Yes, Except as Noted Musculoskeletal: Pain Exam Vital Signs Vital Signs Date Time Temp Pulse Resp B/P (MAP) Pulse Ox O2 Delivery O2 Flow Rate FiO2 07/07/18 13:48 14 95 07/07/18 12:35 ??? 07/07/18 12:30 ???/??? (1665) 07/07/18 12:15 Nasal Cannula 2.0 07/07/18 09:14 97.9 Neuro: No Gross deficits Eyes: PERRLA Cardiovascular: Regular Rate and Rhythm Respiratory: Clear to Auscultation GI: Abd Soft and Non-Tender Extremities: No Edema Integumentary: No Cyanosis; Other (Right suborbital skin graft.) Medical Decision Making Data Points Result Diagram: 07/07/1890407/07/18904 Assessment and Plan Problems: (1) Subtrochanteric fracture of femur Status: Acute Assessment & Plan: She did present with a left hip fracture. She is scheduled for operative repair with Dr. Sullivan tomorrow. She has no underlying conditions that would prevent her from having surgery. She will require postoperative anticoagulation. (2) Seizure Onset Date: 04/01/2015 Status: Acute Assessment & Plan: She is on chronic treatment with Phenytoin and gabapentin. (3) Skin lesion of face Status: Chronic Assessment & Plan: She did have a facial skin graft done on 07/[address] Alarcon. He is aware and will evaluate her on Monday. Venous Thromboembolism Antithrombotics Is Pt On Any Antithrombotics?: No Exam Sepsis Risk: No Definite Risk Problem Qualifiers (1) Subtrochanteric fracture of femur: Encounter type: initial encounter Fracture type: closed Fracture alignment: displaced Laterality: left Qualified Codes: S72.22XA - Displaced subtrochanteric fracture of left femur, initial encounter for closed fracture UTE JONES DO Jul 07, 2018 14:10 <Electronically signed by UTE JONES DO> D/ 141 [id number] 141 [place]/ESTHELA CC: The above acute care issues are resolving and/or stable. Patient requires detention and/or skilled rehabilitation and is ready for admission to Extended Care. Any change in condition is described below. CATRACHO REDD Jul 10, 2018 11:00
[2018-07-10] MEDS: GABAPENTIN 300 MG CAP PO SCH ×2 (14:37→20:51)
[2018-07-10] MEDS: PHENYTOIN ER 100 MG CAPER PO SCH ×2 (14:38→20:51)
--- NOTE | 2018-07-10 15:11 | OT ECF NOTE ---
Type of Note: Initial Note Primary Medical Diagnosis: Left hip ORIF Occupational Therapy Evaluation Date: 07-10-18 SUBJECTIVE: Prior Hospitalization: Pt. admitted to [facility] medical/surgical floor from 07-08-18 to 07-10-18. Prior Level of Function: Pt. was Independent with all ADL's prior to fall at home following skin graph to face when she was placed on O2. Pt. states that she believes that she tripped over her O2 tubing when she fell in her kitchen. Prior Living Status: Single level house Living with family Assist by family Community Services: Private caregiver, "Amber, " 2 hrs/day, 6x/week to assist with grocery shopping, transportation to/from medical appointments, going to bank for patient. Home Accessibility: Stairs with rails All needs on one level Walk-in shower Equipment Owned: Rollator Tub/shower chair , grab bars, Hand held shower. Medical Complications/Past Medical History: Pt. is a 85 year old female s/p squamous cell carcinoma skin graft to her face in which she was placed on O2 following. Pt. fell at home (likely on O2 tubing) sustaining a left fracture to femur- ORIF of Dr. Sullivan. Pt. is WBAT on LLE, however, pt. is currently requiring Max A x2 people to perform transfers. Pt. was independent with all ADL activities prior to fall at home. Pt. has been admitted to [facility] ECF for continued rehab to increase independence in ADL/IADL activities. Psychosocial Support: Supportive son and grandson who pt. resides with in [place]. Supportive private caregiver, "Amber". Pain Scale (0-10): None stated during subjective evaluation, pt. refused getting OOB with OT. OBJECTIVE: Strength: MMT: Right Left Shoulder Flexion [*] [*] Elbow Flexion [*] [*] Wrist Extension [*] [*] Wrinkle Chaser [*] [*] (5= normal, 4= good, 3= fair, 2= poor, 1= trace) ROM: Both upper extremities WFL Sensation: [*] Functional Transfer: Assistive Device: EZ/Patient assisted lift Transfer Ability: Moderate assistance 2-person assist ADL: Upper body dressing: Assistive device: Upper body dressing ability: Set-up Lower body dressing: Assistive device: Lower body dressing ability: Total A Toileting: Assistive device: Toileting ability: N/T Grooming/hygiene: Assistive device: Grooming ability: N/T Bathing: Assistive device: Bathing ability: N/T Standardized Assessment: Luna Index of Activities of Daily Living- Pt. scored a 6/20 on this Index upon evaluation. ASSESSMENT: Problem List/Current Limitations: Pain Decreased WB Decreased activity carlie Decreased strength Decreased sensation Decreased coordination Generalized weakness Short Term Goals: 1. Pt. to perform LB dressing activities with Min A. 2. Pt. to perform showering activities with Min A. 3. Pt. to improve Luna Index ADL score by 2 points. 4. Pt. to perform g/h activities with I. 5. Pt. to improve toileting activities with Mod I. Alf Goals: Return to home with Care. Patient Goals: Return to home. Rehabilitation Prognosis: Fair Barriers to Discharge: Advanced age, increased pain PLAN: The patient will benefit from skilled occupational therapy services 5 times per week for 2 weeks including: Ther ex ADL training Safety training Ther act IADL training Transfer training Adaptive equip training Bed mobility Thank you for this referral. If you have any questions, concerns, or comments about this report or plan, please contact me at . Gina Cannon OTR/L Occupational Therapist ALTHEA
[2018-07-10 16:25] VITALS: BP 137/80
[2018-07-10] MEDS: PATIENT'S OWN MED OS SCH (20:50)
[2018-07-10] MEDS: BACITRACIN/POLYMY B OINT 15 GM TP SCH (20:50)
[2018-07-10] MEDS: LATANOPRO 0.005% OP SOLN 2.5ML OU SCH (20:50)
[2018-07-10] MEDS: DOCUSATE SODIUM 100 MG CAP PO SCH (20:51)
[2018-07-10] MEDS: APAP/HYDROCODONE 325/5 TAB PO PRN (20:57)
[2018-07-11 09:00] VITALS: BP 131/59
[2018-07-11] MEDS: POLYETHYLENE GLYCOL 17 GM PKT PO SCH (09:00)
[2018-07-11] MEDS: DOCUSATE SODIUM 100 MG CAP PO SCH ×3 (09:00→20:23)
[2018-07-11] MEDS: PHENYTOIN ER 100 MG CAPER PO SCH ×3 (09:07→20:28)
[2018-07-11] MEDS: GABAPENTIN 300 MG CAP PO SCH ×3 (09:07→20:23)
[2018-07-11] MEDS: APAP/HYDROCODONE 325/5 TAB PO PRN ×2 (09:07→20:30)
[2018-07-11] MEDS: ENOXAPARIN 40 MG/0.4ML SYR SC SCH (09:08)
[2018-07-11] MEDS: BACITRACIN/POLYMY B OINT 15 GM TP SCH ×2 (09:08→20:22)
--- NOTE | 2018-07-11 09:34 | Medical Nutrition Therapy ---
Nutrition Anthropometrics Height (Inches): 60 (stated) Weight (Pounds): 132 Weight (Calculated Kilograms): 59.874 BMI: 25.7 Dylan Nutrition Score: Probably Inadequate Dylan Nutrition Risk Score: 13 Dietary Referral Nutrition Risk Factors: Nutrition Risk Comment: Nutritional Diagnosis Nutritional Risk Acuity 3: OR & > 80 yrs, Fx & > 80 yrs, Cancer Nutritional Risk Acuity 4: Good Appetite Past Medical History: Seizures, Skin lesion (cancer) of face Nutritional Acuity: 3-Mild Energy Requirement: 1600 (M- STJ X 1.3 SF) Protein Requirement: 71 (1.2gm/kg) Fluid Requirement: 1500 (25ml/kg) Diet Type: Diet as Tolerated EDDIE/REG Nutrition Intervention: Cont diet as ordered, Encourage intake, HS snack Nutrition Monitoring & Eval Nutrition Goals: Eat 75-100% Meal Nutrition Follow-Up: Good Intake RD Assessment Type: RD Assessment Patient Nutrition Acuity: 3-Mild Follow Up Date: Jul 17, 2018 Nutritional Comment: 07/11 Pt admitted s/p hip fx with surgery. Pt was eating 75-100% on med unitl. Alb 3.6. H/h low at 10.4/30.1 . Will cont to monitor and encourage intake. TERESA MOREAU Jul 11, 2018 08:54
--- NOTE | 2018-07-11 12:46 | Consultant Pharmacy Review ---
Saddle Stitching Machine Operator Review Medication Review Do All Mecications have a Diag: Yes Beers Criteria Medication 2014 Benzodiazapines (long acting): Diazepam (for muscle spasms post op) Disease-Drug Interactions History of Falls/Fractures: Anticonvulsants (phenytoin - hx of seizures), Benzodiazepines (on diazepam prn for spasms post op), Opioids (pain control post op) Other General Cautions Patient is 87 years old and is a candidate for BEERs evaluation. She is currently ordered diazepam for muscle spasms post operatively, lortab for post op pain, and is on phenytoin for a history of seizures. This combination, in addition to her fall history, make her a very high fall risk. The medications together can cause increased LINE INSTALLER TROLLEY depression. Consideration for lowest dose possible, and frequency to reduce this risk. Phenytoin should not be administered within 2 hours of antacids as they can reduce the serum concentrations of the phenytoin, placing patient at a greater risk for seizure activity. Pneumococcal Vaccine HX Pneumo Vac (Nalsivt46): Yes (08/2017) HX Pneumo Vac (Pneumovax): Yes (ordered and sent to unit 07/10/18) Notified? Notified?: No ABRAHAM ARAUZ Jul 11, 2018 12:46
--- NOTE | 2018-07-11 15:12 | Hospitalist Progress Note ---
Physical Exam Vital Signs Date Time Temp Pulse Resp B/P (MAP) Pulse Ox O2 Delivery O2 Flow Rate FiO2 07/11/18 10:59 90 Nasal Cannula 2.0 07/11/18 09:00 98.2 88 18 131/59 (83) Intake and Output 07/11/18 07:00 Intake Total 720 ml Balance 720 ml Intake Oral 720 ml # Voids 5 # Bowel Movements 2 Assessment and Plan Problems: (1) Subtrochanteric fracture of femur Status: Acute Assessment & Plan: She did present with a left hip fracture. She had surgical repair with Dr. Sullivan. She tolerated surgery fairly well. She is on Lovenox for postoperative anticoagulation. She was transferred to [facility] for ongoing rehabilitation. (2) Seizure Onset Date: 04/01/2015 Status: Acute Assessment & Plan: She is on chronic treatment with Phenytoin and gabapentin. (3) Skin lesion of face Status: Chronic Assessment & Plan: She did have a facial skin graft done on 07/[address] Romeo. He is aware and will follow her. (4) Postoperative anemia Status: Acute Assessment & Plan: The patient's hemoglobin dropped after surgery and she was transfused 2u PRBCs. Will monitor labs periodically. (5) Hyponatremia Status: Acute Assessment & Plan: Sodium is low postoperatively. Will recheck BMP in am. Time Spent on Plan of Care: < 30 min OVIDIO TERRY MD Jul 11, 2018 15:12
[2018-07-11] MEDS: LATANOPRO 0.005% OP SOLN 2.5ML OU SCH (20:22)
[2018-07-11] MEDS: PATIENT'S OWN MED OS SCH (20:28)
[2018-07-11 20:40] VITALS: BP 149/81
[2018-07-12 06:16] LABS: PLATELET COUNT, AUTOMATED 149 K/uL (150-450)
[2018-07-12 07:30] VITALS: BP 115/56
[2018-07-12] MEDS: POLYETHYLENE GLYCOL 17 GM PKT PO SCH (09:00)
[2018-07-12] MEDS: BACITRACIN/POLYMY B OINT 15 GM TP SCH ×2 (09:00→20:50)
[2018-07-12] MEDS: DOCUSATE SODIUM 100 MG CAP PO SCH ×2 (09:00→20:50)
[2018-07-12] MEDS: GABAPENTIN 300 MG CAP PO SCH ×2 (09:00→20:50)
[2018-07-12] MEDS: PHENYTOIN ER 100 MG CAPER PO SCH ×3 (09:01→20:51)
[2018-07-12] MEDS: ENOXAPARIN 40 MG/0.4ML SYR SC SCH (09:01)
--- NOTE | 2018-07-12 10:14 | PT ECF NOTE ---
Type of Note: Initial Note Primary Medical Diagnosis: s/p L hip ORIF following fall. WBAT L LE Physical Therapy Evaluation Date: 07/11/2018 SUBJECTIVE: Prior Hospitalization: [facility] acute 07/07-07/10. DOS: 07/08/18 Prior Level of Function: Independent with functional mobility. Assistance from son and grandson for IADLs. Prior Living Status: Single level house, Living with family (son and grandson), Assist by family, Pt also has caregiver a few times a week. Community Services: voice studies director. Home Accessibility: Stairs with rails, All needs on one level, Walk-in shower Equipment Owned: Rollator, Tub/shower chair Medical Complications/Past Medical History: Please see [employer] Psychosocial Support: Supportive family and caregiver Pain Scale (0-10): Pt reports hip pain with movement as the worst she has ever experienced. Minimal pain noted at rest. OBJECTIVE: Strength: Left Lower Extremity: Knee flexion: 3-/5 Bed Mobility: Pt declines, requires significant amount of assistance per nursing. Transfers: Pt declined. currently requiring use of lift with nursing. Gait: Pt unable Stairs: Pt unable. ASSESSMENT: Pt presents with significant decrease in independence and safety with functional mobility s/p L hip ORIF. Pt currently WBAT L LE. Pt will benefit from skilled PT for functional mobility training in order to increase safety and independence with functional mobility in order to return to prior level of function. Problem List/Current Limitations: Pain Decreased activity carlie Decreased strength Decreased balance Generalized weakness Lack of motivation Short Term Goals: 1. Min A bed mobility. 2. SBA sit<>stand transfers from a variety of surfaces. 3. SBA ambulation x 50' with RW. 4. Ascend/descend 4 stairs CGA. Slunk Skin Curer Goals: Return to previous living environment Patient Goals: Return to previous living environment Rehabilitation Prognosis: Fair Barriers for Discharge: currently Pt is reluctant to attempt any functional mobility due to feeling overwhelmed and in pain. PLAN: The patient will benefit from skilled physical therapy services 5 times per week for 2 weeks including: Therapeutic Exercise Therapeutic Activities Transfer Training Gait Training Stair Training Manual Therapy ADL's Safety Training Neuromuscular Re-educ. Pt/Caregiver Training Bed Mobility Thank you for this referral. If you have any questions, concerns, or comments about this report or plan, please contact me at . Radha Lai, PT, DPT, GCS MTDD
[2018-07-12] MEDS: APAP/HYDROCODONE 325/5 TAB PO PRN ×3 (10:57→16:31)
[2018-07-12] MEDS: PATIENT'S OWN MED OS SCH (21:00)
[2018-07-12] MEDS: LATANOPRO 0.005% OP SOLN 2.5ML OU SCH (21:00)
[2018-07-13 07:55] VITALS: BP 151/82
[2018-07-13] MEDS: GABAPENTIN 300 MG CAP PO SCH ×2 (08:42→20:43)
[2018-07-13] MEDS: APAP/HYDROCODONE 325/5 TAB PO PRN (08:42)
[2018-07-13] MEDS: DOCUSATE SODIUM 100 MG CAP PO SCH ×2 (08:42→20:43)
[2018-07-13] MEDS: PHENYTOIN ER 100 MG CAPER PO SCH ×3 (08:42→20:43)
[2018-07-13] MEDS: BACITRACIN/POLYMY B OINT 15 GM TP SCH (08:43)
[2018-07-13] MEDS: POLYETHYLENE GLYCOL 17 GM PKT PO SCH (08:43)
[2018-07-13] MEDS: ENOXAPARIN 40 MG/0.4ML SYR SC SCH (08:43)
[2018-07-13 16:35] VITALS: BP 130/72
--- NOTE | 2018-07-13 17:30 | General Surgery Progress Note ---
Subjective Progress Notes Subjective Patient's main complaint is left hip and thigh pain related to her fracture. No other complaints today. Physical Exam Vital Signs Date Time Temp Pulse Resp B/P (MAP) Pulse Ox O2 Delivery O2 Flow Rate FiO2 07/13/18 16:35 97.4 87 14 130/72 (91) 95 Nasal Cannula 2.0 Intake and Output 07/13/18 07:00 Intake Total 1380 ml Balance 1380 ml Intake Oral 1380 ml # Voids 7 # Bowel Movements 2 General Appearance: Alert, Awake, No Acute Distress, Afebrile ENT: Other (the skin graft on her right face is healing well. I removed all the sutures today. If there is some scabbing over the top but I can see pink tissue underneath. The right neck donor site appears to be healing well without erythema or drainage. I left the sutures and an we'll remove them next week.) Result Diagram: 07/12/18 0605 07/12/18 0605 Assessment and Plan Problems: (1) Squamous cell carcinoma, face Status: Chronic Assessment & Plan: 07/13/18: POD#8 patient seems to be healing well. The graft is looking as expected at this point. It seems to be taking and growing. Sutures removed from the graft site but left and on the donor site and I will remove these next week. No other issues related to the graft. We can stop applying antibiotic ointment to the graft and let it dry out at this point. I will see her next week. Condition Stable Time Spent: < 30 min UTE ALARCON MD Jul 13, 2018 17:30
[2018-07-13] MEDS: PATIENT'S OWN MED OS SCH (20:42)
[2018-07-13] MEDS: LATANOPRO 0.005% OP SOLN 2.5ML OU SCH (20:42)
[2018-07-14] MEDS: APAP/HYDROCODONE 325/5 TAB PO PRN (00:44)
[2018-07-14 07:40] VITALS: BP 142/72
[2018-07-14] MEDS: POLYETHYLENE GLYCOL 17 GM PKT PO SCH (09:00)
[2018-07-14] MEDS: PHENYTOIN ER 100 MG CAPER PO SCH ×3 (09:15→21:41)
[2018-07-14] MEDS: GABAPENTIN 300 MG CAP PO SCH ×2 (09:15→21:41)
[2018-07-14] MEDS: ENOXAPARIN 40 MG/0.4ML SYR SC SCH (09:15)
[2018-07-14] MEDS: DOCUSATE SODIUM 100 MG CAP PO SCH ×2 (09:15→21:00)
[2018-07-14 16:45] VITALS: BP 148/78
[2018-07-14] MEDS: PATIENT'S OWN MED OS SCH (21:42)
[2018-07-14] MEDS: LATANOPRO 0.005% OP SOLN 2.5ML OU SCH (21:42)
[2018-07-15] MEDS: APAP/HYDROCODONE 325/5 TAB PO PRN (02:09)
[2018-07-15 07:36] VITALS: BP 134/67
[2018-07-15] MEDS: DOCUSATE SODIUM 100 MG CAP PO SCH ×2 (08:57→20:47)
[2018-07-15] MEDS: PHENYTOIN ER 100 MG CAPER PO SCH ×3 (08:57→20:47)
[2018-07-15] MEDS: GABAPENTIN 300 MG CAP PO SCH ×2 (08:57→20:47)
[2018-07-15] MEDS: ENOXAPARIN 40 MG/0.4ML SYR SC SCH (08:57)
[2018-07-15] MEDS: POLYETHYLENE GLYCOL 17 GM PKT PO SCH (08:58)
[2018-07-15 17:20] VITALS: BP 134/67
[2018-07-15] MEDS: PATIENT'S OWN MED OS SCH (20:47)
[2018-07-15] MEDS: LATANOPRO 0.005% OP SOLN 2.5ML OU SCH (20:48)
[2018-07-16] MEDS: POLYETHYLENE GLYCOL 17 GM PKT PO SCH (09:00)
[2018-07-16] MEDS: PHENYTOIN ER 100 MG CAPER PO SCH ×3 (09:01→20:49)
[2018-07-16] MEDS: GABAPENTIN 300 MG CAP PO SCH ×2 (09:01→20:49)
[2018-07-16] MEDS: DOCUSATE SODIUM 100 MG CAP PO SCH ×2 (09:02→20:49)
[2018-07-16] MEDS: ENOXAPARIN 40 MG/0.4ML SYR SC SCH (09:04)
[2018-07-16 09:31] VITALS: BP 138/74
[2018-07-16] MEDS: ACETAMINOPHEN 325 MG TAB PO SCH ×3 (11:46→23:23)
[2018-07-16 15:35] VITALS: BP 123/72
--- NOTE | 2018-07-16 16:47 | Medical Nutrition Therapy ---
Nutrition Anthropometrics Height (Inches): 60 (stated) Weight (Pounds): 132 Weight (Calculated Kilograms): 59.874 BMI: 25.7 Dylan Nutrition Score: Probably Inadequate Dylan Nutrition Risk Score: 14 Dietary Referral Nutrition Risk Factors: Nutrition Risk Comment: Nutritional Diagnosis Nutritional Risk Acuity 3: OR & > 80 yrs, Fx & > 80 yrs, Cancer Nutritional Risk Acuity 4: Good Appetite Past Medical History: Seizures, Skin lesion (cancer) of face Nutritional Acuity: 3-Mild Energy Requirement: 1600 (M- STJ X 1.3 SF) Protein Requirement: 71 (1.2gm/kg) Fluid Requirement: 1500 (25ml/kg) Diet Type: Diet as Tolerated EDDIE/REG Nutrition Intervention: Cont diet as ordered, Encourage intake, HS snack Food Likes: 1/2 cup coffee with whole milk. she will tell you how much milk t o add Nutrition Monitoring & Eval Nutrition Goals: Eat 75-100% Meal Nutrition Follow-Up: Good Intake RD Patient Assessment Time: [address] Assessment Type: RD Re-Assessment Patient Nutrition Acuity: 3-Mild Follow Up Date: Jul 24, 2018 Nutritional Comment: 07/11 Pt admitted s/p hip fx with surgery. Pt was eating 75-100% on med unitl. Alb 3.6. H/h low at 10.4/30.1 . Will cont to monitor and encourage intake. BK 07/16 Pt cont on regular diet. Intake averged 89% of small to regular portions. No new labs or wt. Will cont to monitor and encourage intake. TERESA GREEN Jul 16, 2018 16:47
[2018-07-16] MEDS: PATIENT'S OWN MED OS SCH (20:49)
[2018-07-16] MEDS: LATANOPRO 0.005% OP SOLN 2.5ML OU SCH (20:49)
[2018-07-17] MEDS: ACETAMINOPHEN 325 MG TAB PO SCH ×3 (06:48→17:19)
[2018-07-17 08:15] VITALS: BP 131/75
[2018-07-17] MEDS: GABAPENTIN 300 MG CAP PO SCH ×2 (08:52→19:59)
[2018-07-17] MEDS: PHENYTOIN ER 100 MG CAPER PO SCH ×3 (08:52→19:58)
[2018-07-17] MEDS: DOCUSATE SODIUM 100 MG CAP PO SCH ×2 (08:53→19:58)
[2018-07-17] MEDS: ENOXAPARIN 40 MG/0.4ML SYR SC SCH (08:53)
[2018-07-17] MEDS: POLYETHYLENE GLYCOL 17 GM PKT PO SCH (08:53)
[2018-07-17 17:20] VITALS: BP 119/77
[2018-07-17] MEDS: PATIENT'S OWN MED OS SCH (19:58)
[2018-07-17] MEDS: LATANOPRO 0.005% OP SOLN 2.5ML OU SCH (19:58)
[2018-07-18] MEDS: ACETAMINOPHEN 325 MG TAB PO SCH ×4 (01:03→18:00)
[2018-07-18 06:21] LABS: PLATELET COUNT, AUTOMATED 335 K/uL (150-450)
[2018-07-18 08:10] VITALS: BP 134/72
[2018-07-18] MEDS: ENOXAPARIN 40 MG/0.4ML SYR SC SCH (09:04)
[2018-07-18] MEDS: POLYETHYLENE GLYCOL 17 GM PKT PO SCH (09:05)
[2018-07-18] MEDS: DOCUSATE SODIUM 100 MG CAP PO SCH ×2 (09:05→20:30)
[2018-07-18] MEDS: GABAPENTIN 300 MG CAP PO SCH ×2 (09:05→20:31)
[2018-07-18] MEDS: PHENYTOIN ER 100 MG CAPER PO SCH ×3 (09:05→20:30)
--- NOTE | 2018-07-18 13:26 | Hospitalist Progress Note ---
Physical Exam Vital Signs Date Time Temp Pulse Resp B/P (MAP) Pulse Ox O2 Delivery O2 Flow Rate FiO2 07/18/18 09:42 96 Room Air 07/18/18 08:10 97.7 64 20 134/72 (92) 1.0 Intake and Output 07/18/18 07:00 Intake Total 840 ml Balance 840 ml Intake Oral 840 ml # Voids 11 # Bowel Movements 2 Result Diagram: 07/18/18 0556 07/18/18 0556 Assessment and Plan Problems: (1) Frequency of urination Status: Acute Assessment & Plan: The patient states she had to get up 8 times last night to urinate. She did not drink more than usual. It was quite bothersome. Will order a cath UA today. (2) Subtrochanteric fracture of femur Status: Acute Assessment & Plan: She did present with a left hip fracture. She had surgical repair with Dr. Sullivan. She tolerated surgery fairly well. She is on Lovenox for postoperative anticoagulation. She was transferred to [facility] for ongoing rehabilitation. She is slow to progress. Therapy is recommending intermodal dispatcher care. (3) Seizure Onset Date: 04/01/2015 Status: Acute Assessment & Plan: She is on chronic treatment with Phenytoin and gabapentin. (4) Skin lesion of face Status: Chronic Assessment & Plan: She did have a facial skin graft done on 07/[address] Romeo. He is aware and will follow her. The graft appears to be healing well. (5) Postoperative anemia Status: Acute Assessment & Plan: The patient's hemoglobin dropped after surgery and she was transfused 2u PRBCs. She has increased to hgb of 13 on today's labs. (6) Hyponatremia Status: Acute Assessment & Plan: Sodium was low postoperatively. It has increased from 126 to 128 on today's labs. Monitor periodically. Time Spent on Plan of Care: < 30 min OVIDIO TERRY MD Jul 18, 2018 13:26
--- NOTE | 2018-07-18 15:55 | General Surgery Progress Note ---
Subjective Progress Notes Subjective No complaints. Physical Exam Vital Signs Date Time Temp Pulse Resp B/P (MAP) Pulse Ox O2 Delivery O2 Flow Rate FiO2 07/18/18 09:42 96 Room Air 07/18/18 08:10 97.7 64 20 134/72 (92) 1.0 Intake and Output 07/18/18 06:59 Intake Total 840 ml Balance 840 ml Intake Oral 840 ml # Voids 11 # Bowel Movements 2 General Appearance: Alert, Awake, No Acute Distress, Afebrile ENT: Other (Skin graft is healing and appears healthy. Right neck incision is healing well without erythema or drainage. Sutures removed today.) Result Diagram: 07/18/18 0556 07/18/18 0556 Assessment and Plan Problems: (1) Squamous cell carcinoma, face Status: Chronic Assessment & Plan: 07/13/18: POD#8 patient seems to be healing well. The graft is looking as expected at this point. It seems to be taking and growing. Sutures removed from the graft site but left and on the donor site and I will remove these next week. No other issues related to the graft. We can stop applying antibiotic ointment to the graft and let it dry out at this point. I will see her next week. 07/18/18: POD#13. Graft is healing well. Right neck incision is healing well as well. Sutures removed. Will order eye drops due to dryness in right eye. Condition Stable. Time Spent: < 30 min UTE ALARCON MD Jul 18, 2018 15:55
[2018-07-18 17:10] VITALS: BP 142/74
[2018-07-18] MEDS: PATIENT'S OWN MED OS SCH (20:30)
[2018-07-18] MEDS: LATANOPRO 0.005% OP SOLN 2.5ML OU SCH (20:30)
[2018-07-19] MEDS: ACETAMINOPHEN 325 MG TAB PO SCH ×5 (00:38→23:58)
[2018-07-19] MEDS: POLYETHYLENE GLYCOL 17 GM PKT PO SCH (09:03)
[2018-07-19] MEDS: DOCUSATE SODIUM 100 MG CAP PO SCH ×2 (09:04→20:29)
[2018-07-19] MEDS: PHENYTOIN ER 100 MG CAPER PO SCH ×3 (09:04→20:29)
[2018-07-19] MEDS: GABAPENTIN 300 MG CAP PO SCH ×2 (09:04→20:29)
[2018-07-19] MEDS: ENOXAPARIN 40 MG/0.4ML SYR SC SCH (09:04)
[2018-07-19 10:30] VITALS: BP 138/83
[2018-07-19 16:40] VITALS: BP 116/73
[2018-07-19] MEDS: LATANOPRO 0.005% OP SOLN 2.5ML OU SCH (20:30)
[2018-07-19] MEDS: PATIENT'S OWN MED OS SCH (20:30)
[2018-07-20] MEDS: ACETAMINOPHEN 325 MG TAB PO SCH ×4 (05:48→23:43)
[2018-07-20 08:30] VITALS: BP 169/82
[2018-07-20] MEDS: GABAPENTIN 300 MG CAP PO SCH ×2 (09:13→20:33)
[2018-07-20] MEDS: POLYETHYLENE GLYCOL 17 GM PKT PO SCH (09:14)
[2018-07-20] MEDS: ENOXAPARIN 40 MG/0.4ML SYR SC SCH (09:14)
[2018-07-20] MEDS: DOCUSATE SODIUM 100 MG CAP PO SCH ×2 (09:14→20:33)
[2018-07-20] MEDS: PHENYTOIN ER 100 MG CAPER PO SCH ×3 (09:14→20:33)
[2018-07-20] MEDS: HYPROMELLOSE 0.4% LUB 15ML BTL OU PRN (15:33)
[2018-07-20 15:45] VITALS: BP 126/66
[2018-07-20] MEDS: LATANOPRO 0.005% OP SOLN 2.5ML OU SCH (20:33)
[2018-07-20] MEDS: PATIENT'S OWN MED OS SCH (20:34)
[2018-07-21] MEDS: ACETAMINOPHEN 325 MG TAB PO SCH ×3 (06:26→18:18)
[2018-07-21 07:30] VITALS: BP 136/73
[2018-07-21] MEDS: ENOXAPARIN 40 MG/0.4ML SYR SC SCH (09:09)
[2018-07-21] MEDS: PHENYTOIN ER 100 MG CAPER PO SCH ×3 (09:09→20:58)
[2018-07-21] MEDS: DOCUSATE SODIUM 100 MG CAP PO SCH ×2 (09:09→20:58)
[2018-07-21] MEDS: GABAPENTIN 300 MG CAP PO SCH ×2 (09:09→20:58)
[2018-07-21] MEDS: POLYETHYLENE GLYCOL 17 GM PKT PO SCH (09:10)
[2018-07-21 15:23] VITALS: BP 122/53
[2018-07-21] MEDS: LATANOPRO 0.005% OP SOLN 2.5ML OU SCH (20:59)
[2018-07-21] MEDS: PATIENT'S OWN MED OS SCH (20:59)
[2018-07-21] MEDS: HYPROMELLOSE 0.4% LUB 15ML BTL OU PRN (22:35)
[2018-07-22] MEDS: ACETAMINOPHEN 325 MG TAB PO SCH ×4 (07:05→18:05)
[2018-07-22 07:37] VITALS: BP 121/74
[2018-07-22] MEDS: DOCUSATE SODIUM 100 MG CAP PO SCH ×2 (08:28→20:42)
[2018-07-22] MEDS: PHENYTOIN ER 100 MG CAPER PO SCH ×3 (08:28→20:42)
[2018-07-22] MEDS: GABAPENTIN 300 MG CAP PO SCH ×2 (08:29→20:42)
[2018-07-22] MEDS: POLYETHYLENE GLYCOL 17 GM PKT PO SCH (08:29)
[2018-07-22] MEDS: ENOXAPARIN 40 MG/0.4ML SYR SC SCH (08:30)
[2018-07-22 15:59] VITALS: BP 117/63
[2018-07-22] MEDS: PATIENT'S OWN MED OS SCH (20:43)
[2018-07-22] MEDS: LATANOPRO 0.005% OP SOLN 2.5ML OU SCH (20:43)
[2018-07-23] MEDS: ACETAMINOPHEN 325 MG TAB PO SCH ×4 (04:28→17:58)
[2018-07-23 07:22] VITALS: BP 143/81
[2018-07-23] MEDS: DOCUSATE SODIUM 100 MG CAP PO SCH ×2 (08:27→21:34)
[2018-07-23] MEDS: PHENYTOIN ER 100 MG CAPER PO SCH ×3 (08:27→21:34)
[2018-07-23] MEDS: GABAPENTIN 300 MG CAP PO SCH ×2 (08:27→21:34)
[2018-07-23] MEDS: ENOXAPARIN 40 MG/0.4ML SYR SC SCH (08:28)
[2018-07-23] MEDS: POLYETHYLENE GLYCOL 17 GM PKT PO SCH (08:30)
[2018-07-23] MEDS: HYPROMELLOSE 0.4% LUB 15ML BTL OU PRN ×2 (10:29→16:02)
[2018-07-23 16:30] VITALS: BP 116/70
[2018-07-23] MEDS: LATANOPRO 0.005% OP SOLN 2.5ML OU SCH (21:35)
[2018-07-23] MEDS: PATIENT'S OWN MED OS SCH (21:35)
[2018-07-24] MEDS: ACETAMINOPHEN 325 MG TAB PO SCH ×4 (00:43→18:48)
[2018-07-24 08:10] VITALS: BP 156/86
[2018-07-24] MEDS: PHENYTOIN ER 100 MG CAPER PO SCH ×3 (08:59→20:55)
[2018-07-24] MEDS: POLYETHYLENE GLYCOL 17 GM PKT PO SCH (09:00)
[2018-07-24] MEDS: GABAPENTIN 300 MG CAP PO SCH ×2 (09:00→20:55)
[2018-07-24] MEDS: DOCUSATE SODIUM 100 MG CAP PO SCH ×2 (09:00→20:55)
[2018-07-24] MEDS: ENOXAPARIN 40 MG/0.4ML SYR SC SCH (09:01)
--- NOTE | 2018-07-24 12:37 | OT ECF NOTE ---
Type of Note: 2-week progress note Primary Medical Diagnosis: Left hip ORIF Occupational Therapy Evaluation Date: 07-10-18 SUBJECTIVE: Prior Hospitalization: Pt. admitted to [facility] medical/surgical floor from 07-08-18 to 07-10-18. Prior Level of Function: Pt. was Independent with all ADL's prior to fall at home following skin graph to face when she was placed on O2. Pt. states that she believes that she tripped over her O2 tubing when she fell in her kitchen. Prior Living Status: Single level house Living with family Assist by family Community Services: Private caregiver, "Amber, " 2 hrs/day, 6x/week to assist with grocery shopping, transportation to/from medical appointments, going to bank for patient. Home Accessibility: Stairs with rails All needs on one level Walk-in shower Equipment Owned: Rollator, Tub/shower chair ,grab bars, Hand held shower. Medical Complications/Past Medical History: Pt. is a 85 year old female s/p squamous cell carcinoma skin graft to her face in which she was placed on O2 following. Pt. fell at home (likely on O2 tubing) sustaining a left fracture to femur- ORIF of Dr. Sullivan. Pt. is WBAT on LLE, however, pt. is currently requiring CGA/Min Ax1 perform transfers. Pt. was independent with all ADL activities prior to fall at home. Pt. [facility] been [facility] for continued rehab to increase independence in ADL/IADL activities. Psychosocial Support: Supportive son and grandson who pt. resides with in [place]. Supportive private caregiver, "Amber". Pain Scale (0-10): Pt reports significant pain with all mobility and ADLs/IADLs. No numerical rating provided. OBJECTIVE: Strength: MMT: Right Left Shoulder Flexion [*] [*] Elbow Flexion [*] [*] Wrist Extension [*] [*] Visual Basic Developer [*] [*] (5= normal, 4= good, 3= fair, 2= poor, 1= trace) ROM: Both upper extremities, WFL Sensation: [*] Functional Transfer: Assistive Device: Rolling walker Transfer Ability: CGA ambulation with RW. Occasional Min A and v/c's for safety with RW. Recommend 24/7 assist upon discharge home. ADL: Upper body dressing: Assistive device: Upper body dressing ability: Set-up Lower body dressing: Assistive device: Tower Cleaner-Pt frequently refusing to attempt LB dressing (I)ly. Lower body dressing ability: Mod A Toileting: Assistive device: Raised toilet seat, grab bars Toileting ability: Mod A-Pt frequently refusing to complete clothing management and cade-care (I)ly. Grooming/hygiene: Assistive device: Seated Grooming ability: Set-up Bathing: Assistive device: Bathing ability: N/T Standardized Assessment: Luna Index of Activities of Daily Living- Pt. scored a 6/20 on this Index upon evaluation. Pt scored a 12/20 at 2-week progress note (07/24/18). ASSESSMENT: Evelyne currently has progressed to assist of 1 for all ADLs/IADLs and CGA/Min A for ambulation with RW. The pt elicits assist for all cares and will require 24/7 caregiver assist for safety with ambulation and assist for all cares upon discharge home. Evelyne desires to discharge home at current level of function and receive assist for cares. Care conference this afternoon with pt's family to determine the feasibility of pt's plan. Problem List/Current Limitations: Pain Decreased WB Decreased activity tolerance Decreased strength Decreased sensation Decreased coordination Generalized weakness Short Term Goals: 1. Pt. to perform LB dressing activities with Min A. Inconsistent progression. 2. Pt. to perform showering activities with Min A. Goal not addressed. 3. Pt. to improve Luna Index ADL score by 2 points. Goal met. 4. Pt. to perform g/h activities with I. Progressing towards, 5. Pt. to improve toileting activities with Mod I. Inconsistent progression. Usp Goals: Return to home with 24/7 caregiver assist for all ambulation/ADLs/IADLs Patient Goals: Return to home with 34/7 assist Rehabilitation Prognosis: Fair Barriers to Discharge: Advanced age, increased pain PLAN: The patient will benefit from skilled occupational therapy services 5 times per week for 2 weeks including: Ther ex ADL training Safety training Ther act IADL training Transfer training Adaptive equip training Bed mobility Thank you for this referral. If you have any questions, concerns, or comments about this report or plan, please contact me at . Linda Fried MS, OTR/L Occupational Therapist ALTHEA
--- NOTE | 2018-07-24 13:07 | Medical Nutrition Therapy ---
Nutrition Anthropometrics Height (Inches): 60 (stated) Weight (Pounds): 130 Weight (Calculated Kilograms): 58.967 BMI: 25.7 Dylan Nutrition Score: Probably Inadequate Dylan Nutrition Risk Score: 15 Dietary Referral Nutrition Risk Factors: Nutrition Risk Comment: Physical Findings Physical Appearance: Overweight BMI 25-29 Skin Appearance Skin Appearance: Edema Edema Location Modifier: Left Edema Location: Lower Extremity Type of Edema: Degree of Edema: 3+ Gastrointestinal Symptoms GI Symtoms: Constipation Tube Present: Bowel Sounds: Recent Bowel Pattern: Stool Characteristics: Nutritional Diagnosis Nutritional Risk Acuity 3: OR & > 80 yrs, Fx & > 80 yrs, Cancer Nutritional Risk Acuity 4: Good Appetite Past Medical History: Seizures, Skin lesion (cancer) of face Nutritional Acuity: 3-Mild Nutrition Diagnosis: Increased Nutrient Needs Nutrition Etiology: Physiological Causes Nutrition Problem/Etiology/Sym: Increased nutrient needs related to physiological causes as evidenced by recent hip fx repair, need for wound healing and energy for rehab Energy Requirement: 1600 (M- STJ X 1.3 SF) Protein Requirement: 71 (1.2gm/kg) Fluid Requirement: 1500 (25ml/kg) Diet Type: Diet as Tolerated EDDIE/REG Nutrition Intervention: Cont diet as ordered, Encourage intake, HS snack Food Likes: 1/2 cup coffee with whole milk. she will tell you how much milk to add Nutrition Monitoring & Eval RD Patient Assessment Time: [address] Assessment Type: RD Re-Assessment Patient Nutrition Acuity: 3-Mild Follow Up Date: Jul 24, 2018 Nutritional Comment: 07/11 Pt admitted s/p hip fx with surgery. Pt was eating 75-100% on med unitl. Alb 3.6. H/h low at 10.4/30.1 . Will cont to monitor and encourage intake. BK 07/16 Pt cont on regular diet. Intake averged 89% of small to regular portions. No new labs or wt. Will cont to monitor and encourage intake. BK 07/24 Pt still doing rehab for hip fx repair surgery. Currently on EDDIE with an average of 87% intake over previous few days. Last labs were taken on 07/18: noting low Na (128) and creatinine .4. No new wt since 07/17 at 129#. Will cont to monitor and encourage intake. -MANPREET QUINONES Jul 24, 2018 13:07
[2018-07-24 16:20] VITALS: BP 130/68
[2018-07-24] MEDS: LATANOPRO 0.005% OP SOLN 2.5ML OU SCH (20:55)
[2018-07-24] MEDS: PATIENT'S OWN MED OS SCH (20:55)
[2018-07-25] MEDS: ACETAMINOPHEN 325 MG TAB PO SCH ×3 (00:42→12:01)
--- NOTE | 2018-07-25 08:30 | Medical Nutrition Therapy ---
Nutrition Anthropometrics Height (Inches): 60 (stated) Weight (Pounds): 130 Weight (Calculated Kilograms): 58.967 BMI: 25.7 Dylan Nutrition Score: Probably Inadequate Dylan Nutrition Risk Score: 15 Dietary Referral Nutrition Risk Factors: Nutrition Risk Comment: Physical Findings Physical Appearance: Overweight BMI 25-29 Skin Appearance Skin Appearance: Edema Edema Location Modifier: Left Edema Location: Lower Extremity Type of Edema: Degree of Edema: 3+ Gastrointestinal Symptoms GI Symtoms: Constipation Tube Present: Bowel Sounds: Recent Bowel Pattern: Stool Characteristics: Nutritional Diagnosis Nutritional Risk Acuity 3: OR & > 80 yrs, Fx & > 80 yrs, Cancer Nutritional Risk Acuity 4: Good Appetite Past Medical History: Seizures, Skin lesion (cancer) of face Nutritional Acuity: 3-Mild Nutrition Diagnosis: Increased Nutrient Needs Nutrition Etiology: Physiological Causes Nutrition Problem/Etiology/Sym: Increased nutrient needs related to physiological causes as evidenced by recent hip fx repair, need for wound healing and energy for rehab Energy Requirement: 1600 (M- STJ X 1.3 SF) Protein Requirement: 71 (1.2gm/kg) Fluid Requirement: 1500 (25ml/kg) Diet Type: Diet as Tolerated EDDIE/REG Nutrition Intervention: Cont diet as ordered, Encourage intake, HS snack Food Likes: 1/2 cup coffee with whole milk. she will tell you how much milk to add Nutrition Monitoring & Eval RD Patient Assessment Time: [address] Assessment Type: RD Re-Assessment Patient Nutrition Acuity: 3-Mild Follow Up Date: Jul 31, 2018 Nutritional Comment: 07/11 Pt admitted s/p hip fx with surgery. Pt was eating 75-100% on med unitl. Alb 3.6. H/h low at 10.4/30.1 . Will cont to monitor and encourage intake. BK 07/16 Pt cont on regular diet. Intake averged 89% of small to regular portions. No new labs or wt. Will cont to monitor and encourage intake. BK 07/24 Pt still doing rehab for hip fx repair surgery. Currently on EDDIE with an average of 87% intake over previous few days. Last labs were taken on 07/18: noting low Na (128) and creatinine .4. No new wt since 07/17 at 129#. Will cont to monitor and encourage intake. -TERESA DOMINGUEZ Jul 25, 2018 08:30
[2018-07-25] MEDS: DOCUSATE SODIUM 100 MG CAP PO SCH (09:00)
[2018-07-25] MEDS: POLYETHYLENE GLYCOL 17 GM PKT PO SCH (09:00)
[2018-07-25 09:20] VITALS: BP 126/64
[2018-07-25] MEDS ORDERED: ACET-2007 PO (09:20)
[2018-07-25] MEDS: GABAPENTIN 300 MG CAP PO SCH (09:26)
[2018-07-25] MEDS: ENOXAPARIN 40 MG/0.4ML SYR SC SCH (09:26)
[2018-07-25] MEDS: PHENYTOIN ER 100 MG CAPER PO SCH (09:27)
--- NOTE | 2018-07-25 09:36 | OT ECF NOTE ---
Type of Note: Discharge Note Primary Medical Diagnosis: Left hip ORIF Occupational Therapy Evaluation Date: 07-10-18 SUBJECTIVE: Prior Hospitalization: Pt. admitted to [facility] medical/surgical floor from 07-08-18 to 07-10-18. Prior Level of Function: Pt. was Independent with all ADL's prior to fall at home following skin graph to face when she was placed on O2. Pt. states that she believes that she tripped over her O2 tubing when she fell in her kitchen. Prior Living Status: Single level house Living with family Assist by family Community Services: Private caregiver, "Amber, " 2 hrs/day, 6x/week to assist with grocery shopping, transportation to/from medical appointments, going to bank for patient. Home Accessibility: Stairs with rails All needs on one level Walk-in shower Equipment Owned: Rollator, Tub/shower chair ,grab bars, Hand held shower. Medical Complications/Past Medical History: Pt. is a 85 year old female s/p squamous cell carcinoma skin graft to her face in which she was placed on O2 following. Pt. fell at home (likely on O2 tubing) sustaining a left fracture to femur- ORIF of Dr. Sullivan. Pt. is WBAT on LLE, however, pt. is currently requiring CGA/Min Ax1 perform transfers. Pt. was independent with all ADL activities prior to fall at home. Pt. [facility] for continued rehab to increase independence in ADL/IADL activities. Psychosocial Support: Supportive son and grandson who pt. resides with in [place]. Supportive private caregiver, "Amber". Pain Scale (0-10): Pt reports significant pain with all mobility and ADLs/IADLs. No numerical rating provided. OBJECTIVE: Strength: MMT: Right Left Shoulder Flexion [*] [*] Elbow Flexion [*] [*] Wrist Extension [*] [*] Screen Printing Stencil Preparer [*] [*] (5= normal, 4= good, 3= fair, 2= poor, 1= trace) ROM: Both upper extremities, WFL Sensation: [*] Functional Transfer: Assistive Device: Rolling walker Transfer Ability: CGA ambulation with RW. Occasional Min A and v/c's for safety with RW. Recommend 24/7 assist upon discharge home. ADL: Upper body dressing: Assistive device: Upper body dressing ability: Set-up Lower body dressing: Assistive device: Prosthetic Assistant-Pt frequently refusing to attempt LB dressing (I)ly. Lower body dressing ability: Mod A Toileting: Assistive device: Raised toilet seat, grab bars Toileting ability: Mod A-Pt frequently refusing to complete clothing management and cade-care (I)ly. Grooming/hygiene: Assistive device: Seated Grooming ability: Set-up Bathing: Assistive device: Bathing ability: N/T Standardized Assessment: Luna Index of Activities of Daily Living- Pt. scored a 6/20 on this Index upon evaluation. Pt scored a 12/20 at 2-week progress note (07/24/18). Pt scored a 12/20 at discharge (07/25/18). ASSESSMENT: Evelyne currently has progressed to assist of 1 for all ADLs/IADLs and CGA/Min A for ambulation with RW. The pt elicits assist for all cares and will require 24/7 caregiver assist for safety with ambulation and assist for all cares upon discharge home. Evelyne desires to discharge home at current level of function and receive assist for cares. Family is unable to provide 24/7 assist for all cares. Pt will transfer to [facility] for further skilled care. Problem List/Current Limitations: Pain Decreased WB Decreased activity tolerance Decreased strength Decreased sensation Decreased coordination Generalized weakness Short Term Goals: 1. Pt. to perform LB dressing activities with Min A. Goal not met. 2. Pt. to perform showering activities with Min A. Goal not addressed. 3. Pt. to improve Luna Index ADL score by 2 points. Goal met. 4. Pt. to perform g/h activities with I.Goal not met. 5. Pt. to improve toileting activities with Mod I. Goal not met. Breading Machine Tender Goals: Return to home with 24/7 caregiver assist for all ambulation/ADLs/IADLs Patient Goals: Return to home with 24/7 assist Rehabilitation Prognosis: Fair Barriers to Discharge: Advanced age, increased pain PLAN: The patient desires to not engage in this "program" at this time and will discharge to [facility] for continued skilled care. Family is unable to provide 24/7 assist with all cares at this time if pt were to discharge home. Thank you for this referral. If you have any questions, concerns, or comments about this report or plan, please contact me at . Linda Fried MS, OTR/L Occupational Therapist ALTHEA
[2018-07-25] MEDS ORDERED: DOCU-416 PO (10:27)
--- NOTE | 2018-07-25 10:33 | Hospitalist Depart ---
Discharge Summary Reason for Hosp/Final Diag: (1) Subtrochanteric fracture of femur Status: Acute Hospital Course & Plan: She did present with a left hip fracture. She had sera gical repair with Dr. Sullivan. She tolerated surgery fairly well. She was placed on Lovenox for postoperative anticoagulation. She was transferred to [facility] for ongoing rehabilitation. She is slow to progress. Therapy is recommending nursing home care. She will be transferred to [facility] for further rehab and nursing home care. (2) Seizure Onset Date: 04/01/2015 Status: Acute Hospital Course & Plan: She is on chronic treatment with Phenytoin and gabapentin. (3) Skin lesion of face Status: Chronic Hospital Course & Plan: She did have a facial skin graft done on 07/[address] Alarcon. He is aware and will follow her. The graft appears to be healing well. (4) Postoperative anemia Status: Acute Hospital Course & Plan: The patient's hemoglobin dropped after surgery and she was transfused 2u PRBCs. She has increased to hgb of 13. Resolved. (5) Hyponatremia Status: Acute Hospital Course & Plan: Sodium was low postoperatively. It has increased from 126 to 128 on labs. Stable. (6) Frequency of urination Status: Acute Hospital Course & Plan: The patient had complaints that she had to get up 8 times at night to urinate last week. She did not drink more than usual. UA cath was performed and showed growth on culture. She has reduced to getting up 3 times at night to urinate. Departure Latest Vital Signs Vital Signs 07/25/18 07/25/18 09:20 09:45 Temp 97.7 Pulse 92 Resp 18 B/P (MAP) 126/64 (84) Pulse Ox 91 O2 Delivery Room Air Weight (Pounds): 130 Condition: Improved Discharge: Detention PT/OT Follow Up For: PT For Strengthening, OT For ADL's, PT Evaluation and Treat, ST Evaluation and Treat, OT Evaluation and Treat Discharge Instructions Home Meds Active Scripts Docusate Sodium (COLACE) 100 Mg Capsule, 100 MG PO DAILY, #30 CAPSULE Prov:CATRACHO REDDP 07/25/18 Acetaminophen (MAPAP) 325 Mg Tablet, 650 MG PO Q6H, #60 TAB Prov:CATRACHO REDD [employer] 07/25/18 Docusate Sodium (COLACE) 100 Mg Capsule, 1 CAP PO BID, #30 CAP 0 Refills TAKE WITH A FULL GLASS OF WATER Prov:UTE ALARCON MD 07/06/18 Reported Medications Phenytoin Sodium Extended (DILANTIN) 100 Mg Capsule, 100 MG PO TID, CAPSULE 06/27/18 Timolol (BETIMOL) 5 Ml Drops, 1 GTT OP QHS 04/01/15 Latanoprost (LATANOPROST) 2.5 Ml Drops, 1 GTT OP QHS 04/01/15 Gabapentin (GABAPENTIN) 600 Mg Tablet, 600 MG PO BID 04/01/15 Diet: Regular Activity: As Tolerated Copies to: UTE ALARCON MD ; Venous Thromboembolism Antithrombotics Is Pt On Any Antithrombotics?: No CATRACHO REDD [facility] Jul 25, 2018 10:33
--- NOTE | 2018-07-25 12:26 | PT ECF NOTE ---
Type of Note: Discharge Note Primary Medical Diagnosis: s/p L) hip ORIF following fall. WBAT L) LE Physical Therapy Evaluation Date: 07/11/2018 SUBJECTIVE: Prior Hospitalization[facility] acute 07/07-07[facility]. DOS: 07/08/18 Prior Level of Function: Independent with functional mobility. Assistance from son and grandson for IADLs. Prior Living Status: Single level house, Living with family (son and grandson), Assist by family, Pt also has caregiver a few times a week. Community Services: direct support professional caregiver. Home Accessibility: Stairs with rails, All needs on one level, Walk-in shower Equipment Owned: Rollator, Tub/shower chair Medical Complications/Past Medical History: Please see [employer] Psychosocial Support: Supportive family and caregiver Pain Scale (0-10): Pt notes that pain is adequately managed and that she does not want "so much medication that I can't think". Pt is aware that pain medication may also affect constipation and is trying to manage this side effect as well by taking "no more medication than necessary". OBJECTIVE: Strength: 3-/5 for L) hip flexion and 3/5 for L) hip abduction; R) LE WFL overall Bed Mobility: Pt declines to transfer to bed during this session but nursing notes that mobility is improving overall. Transfers: Pt requests assistance to stand, but is capable to pushing up from armchair to standing position with SBA/CGA for safety. This transfer does take approximately 13 seconds to complete, as measured during the TUG test today. Gait: Pt now tolerating ambulation to/from bathroom as needed and completed the TUG test thereafter, with a total of 50' ambulation including 5- 90 degree turns and 3- 180 degree turns with gait in room, using FWW and SBA/CGA. Pt benefits from cues to hold walker further away, as walking closely up into it causes a backwards lean and increases risk of falling backwards. Stairs: Not yet able to address. ASSESSMENT: Pt has made slow progress toward functional mobility goals, but is not yet safe to be indep in a home environment, due to decreased balance and safety awareness. Pt is also not yet able to tolerate up/down stairs with increased weight placed on L) LE for this skill. Pt notes that her goal is still to return home. Family is aware that further long-term rehab with gradual progression will be necessary to facilitate this and have chosen to transfer to [facility] for further skilled rehab and care. Short Term Goals: 1. Min A bed mobility. 2. SBA sit<>stand transfers from a variety of surfaces. (SBA/CGA from arm chairs and raised toilet with grab bars) 3. SBA ambulation x 50' with RW. (30' max prior to sitting rest break need) 4. Ascend/descend 4 stairs CGA. (not yet able to address due to decreased weight tolerated on L) LE). Alf Goals: Return to previous living environment Patient Goals: Return to previous living environment Rehabilitation Prognosis: Fair Barriers for Discharge: Pt has limited awareness of her functional abilities and feels that her family should be able to care for her at home at this level. PLAN: Pt to transfer to SNF tomorrow, for further long-term rehab to address gradual progression of ADL skills. Thank you for this referral. If you have any questions, concerns, or comments about this report or plan, please contact me at . H. Santa Metz, PT, MPT, OMS MTDD
== END 2018-07-25 12:05 | disposition home or self-care (01) | DRG 560 ==
LOC: ECF 10:07
PROVIDERS: ADMIT Internal Medicine; ATTEND Internal Medicine
DX: S72.22XD Displaced subtrochanteric fracture of left femur, subsequent encounter for closed fracture with routine healing (principal); E87.1 Hypo-osmolality and hyponatremia; G40.909 Epilepsy, unspecified, not intractable, without status epilepticus; M81.0 Age-related osteoporosis without current pathological fracture; R35.0 Frequency of micturition; C44.92 Squamous cell carcinoma of skin, unspecified; D64.9 Anemia, unspecified; W18.30XD Fall on same level, unspecified, subsequent encounter
CPT/HCPCS: 36415; 81001; 82310; 82374; 82435; 82565; 82947; 84132; 84295; 84520; 85025; 87088; 97162; 97166; J1650

== ENCOUNTER → 2018-08-17 | Outpatient (CLI) | payer MEDICARE, OTHER ==
[2018-07-07 15:37] VITALS: BMI 15.6
[~2018-08-17] MED LIST changes: +ACET-2007 PO
--- NOTE | 2018-08-17 17:43 | RADIOLOGY IMAGING REPORT ---
FACILITY: [facility] PATIENT NAME: Evelyne Flores : 1930 MR: [id number] V: [id number] EXAM DATE: ORDERING PHYSICIAN: UTE HOBBS TECHNOLOGIST: Location: [facility] [place] Patient: Evelyne Flores : 1930 Visit/Account:[id number] Date of Sevice: 08/17/2018 BONE MINERAL DENSITY DEXA Scan Clinical history: Osteopenia. Comparison: None available. LUMBAR SPINE: The bone mineral density (BMD) measured from L1-L4 correlates with a Z-score -1.5 and a T-score of -3 .8 which is osteoporosis as defined by the World Health Organization. The corresponding risk of frac ture in the lumbar spine is increased 14 times compared with a young adult reference population. HIP: Bone mineral density (BMD) measured in the Left total hip region correlates with a Z-score -1.0 and a T-score of -3.8 which is osteoporosis as defined by the World Health Organization. The correspondin g risk of fracture in the hip is increased 14 times compared with a young adult reference population. Bone mineral density (BMD) measured in the Femoral Neck region measures 0.515 g/cm2. . T score -3.8. Osteoporosis. Fracture risk increased 14 times Impression: 1. Lumbar spine: Osteoporosis. 2. Left Total Hip: Osteoporosis. 3. Femoral Neck: Bone Mineral Density is 0.515 g/cm2. Osteoporosis The next DEXA scan of this patient should include the following sites: L1-L4 and the left hip. FRAX? WHO Fracture Risk Assessment Tool link: <http://www.shef.ac.uk/FRAX/tool.jsp?locationValue=9> PLEASE NOTE: 1) The World Health Organization defines low BMD as follows: T-score Normal > -1 Osteopenia < -1 and > -2.5 Osteoporosis < -2.5 without fractures Established osteoporosis < -2.5 with fractures 2) In general, you may wish to consider: Diagnosis Treatment Follow-up DEXA Normal BMD Prevention 2-3 years Osteopenia Prevention/therapy 1-2 years Osteoporosis Therapy Yearly 3) Fracture risk estimated from the T-score is more accurate for vertebral fractures (often spontane ous) than for hip fractures. Report Dictated By: Waldo Logan MD at 08/17/2018 5:25 PM Report E-Signed By: Waldo Logan MD at 08/17/2018 5:39 PM WSN:JANNIE
== END ==
LOC: RAD 01:30
PROVIDERS: ATTEND Family Medicine
DX: M81.0 Age-related osteoporosis without current pathological fracture (principal)
CPT/HCPCS: 77080